=== PATIENT | male | born 1970 | race Two or more races ===

== ENCOUNTER 2018-04-02 09:39 | Observation (INO) | payer MEDICAID ==
[2018-04-02] MEDS ORDERED: ASPIRIN 81 MG TABLET, CHEWABLE PO ONE (09:42)
[2018-04-02] MEDS ORDERED: MORPHINE SULFATE 10 MG/ML INJ IV ONE (09:52)
[2018-04-02] MEDS ORDERED: ALBUTEROL SULFATE 0.083% NEB 2.5 MG/3 ML AMPUL NEB ONE (09:52)
--- NOTE | 2018-04-02 09:58 | RADIOLOGY REPORT (SQ) ---
EXAM DESCRIPTION: CHEST SINGLE VIEW COMPLETED DATE/TIME: 04/02/2018 9:50 am REASON FOR STUDY: cp COMPARISON: None. EXAM PARAMETERS: NUMBER OF VIEWS: One view. TECHNIQUE: Single frontal radiographic view of the chest acquired. RADIATION DOSE: NA LIMITATIONS: None. FINDINGS: LUNGS AND PLEURA: No opacities, masses or pneumothorax. No pleural effusion. MEDIASTINUM AND HILAR STRUCTURES: No masses. Contour normal. HEART AND VASCULAR STRUCTURES: Heart normal in size. Normal vasculature. BONES: No acute findings. HARDWARE: None in the chest. OTHER: No other significant finding. IMPRESSION: NO ACUTE RADIOGRAPHIC FINDING IN THE CHEST. TECHNICAL DOCUMENTATION: JOB ID: [id number] [employer]- All Rights Reserved Reading location - IP/workstation name: [email or web address]
[2018-04-02 10:31] LABS: ABSOLUTE EOSINOPHILS # (AUTO) 0.3 10^3/uL (0.0-0.6); ABSOLUTE LYMPHOCYTES (AUTO) 3.5 10^3/uL (0.5-4.7); ABSOLUTE MONOCYTES (AUTO) 0.8 10^3/uL (0.1-1.4); ABSOLUTE NEUT (AUTO) 7.4 10^3/uL (1.7-8.2); BASOPHILS % (AUTO) 0.3 % (0-2); EOSINOPHILS % (AUTO) 2.3 % (0-6); HEMOGLOBIN 16.1 g/dL (13.5-17.0); LYMPHOCYTES % (AUTO) 29.1 % (13-45); MEAN CORPUSCULAR HEMOGLOBIN 33.5 pg (27.0-33.4); MEAN CORPUSCULAR HGB CONC 35.7 g/dL (32.0-36.0); MEAN CORPUSCULAR VOLUME 94 fl (80-97); MONOCYTES % (AUTO) 6.7 % (3-13); PLATELET COUNT 245 10^3/uL (150-450); RED CELL DISTRIBUTION WIDTH 13.9 % (11.5-14.0); SEGMENTED NEUTROPHILS % (AUTO) 61.6 % (42-78); TOTAL CELLS COUNTED % (AUTO) 100 %
[2018-04-02 10:37] LABS: ALANINE AMINOTRANSFERASE 42 U/L (21-72); ALBUMIN 3.8 g/dL (3.5-5.0); ALKALINE PHOSPHATASE 63 U/L (38-126); ANION GAP 12 (5-19); ASPARTATE AMINO TRANSFERASE 23 U/L (17-59); BILIRUBIN,DIRECT 0.3 mg/dL (0.0-0.4); BILIRUBIN,TOTAL 0.3 mg/dL (0.2-1.3); BLOOD UREA NITROGEN 13 mg/dL (7-20); CARBON DIOXIDE 22 mmol/L (22-30); CHLORIDE 108 mmol/L (98-107); CREATINE KINASE 241 U/L (55-170); GLUCOSE 118 mg/dL (75-110); LIPASE 141.1 U/L (23-300); POTASSIUM 4.6 mmol/L (3.6-5.0); SODIUM 142.4 mmol/L (137-145); TOTAL PROTEIN 6.6 g/dL (6.3-8.2)
[2018-04-02 10:49] LABS: CREATINE KINASE MB 2.39 ng/mL (<4.55)
[2018-04-02 10:51] LABS: TROPONIN I < 0.012 ng/mL
[2018-04-02] MEDS ORDERED: GUAIFENESIN/D-METHORPHAN (200-20 MG) SYRUP 10 ML PO ONE (11:32)
[2018-04-02] MEDS ORDERED: NITROGLYCERIN 0.4 MG/TAB 25 TAB/BOTTLE SL ONE (11:35)
--- NOTE | 2018-04-02 11:38 | ER Document Report ---
ED Cardiac - General Chief Complaint: Chest Pain Stated Complaint: CHEST PAIN Time Seen by Provider: 04/02/18 09:47 Mode of Arrival: Ambulatory Information source: Patient Notes: Patient is a 47-year-old male who presents to the ER today for left-sided chest pain, worse with deep breathing and mild cough 3 days. He admits that the left -sided chest pain radiates around to the left upper back. Patient denies any fever, chills, history of asthma or COPD, shortness of breath or wheezing. Patient does smoke 1 pack per day of cigarettes, denies any history of high blood pressure, cholesterol. He does admit to family history of heart disease although he himself has never had a stroke or heart attack. He has never had a stress test. He moved here from [place] recently and does not have a doctor here. TRAVEL OUTSIDE OF THE [place] IN LAST 30 DAYS: No - Related Data Allergies/Adverse Reactions: No Known Allergies Allergy (Verified 04/02/18 09:51) Past Medical History - General Information source: Patient - Social History Smoking Status: Unknown if Ever Smoked Family History: Reviewed & Not Pertinent Patient has suicidal ideation: No Patient has homicidal ideation: No Renal/ Medical History: Denies: Hx Peritoneal Dialysis Review of Systems - Review of Systems Constitutional: No symptoms reported EENT: No symptoms reported Cardiovascular: See HPI Respiratory: See HPI Gastrointestinal: No symptoms reported Genitourinary: No symptoms reported Male Genitourinary: No symptoms reported Musculoskeletal: No symptoms reported Skin: No symptoms reported Hematologic/Lymphatic: No symptoms reported Neurological/Psychological: No symptoms reported Physical Exam - Vital signs Vitals: Pulse Ox 98 04/02/18 09:42 - Notes Notes: PHYSICAL EXAMINATION: GENERAL: Uncomfortable appearing, but in no acute distress. HEAD: Atraumatic, normocephalic. EYES: Pupils equal round and reactive to light, extraocular movements intact, sclera anicteric, conjunctiva are normal. ENT: ear canals without erythema or foreign body, TMs pearly irwin with good bony landmarks, nares patent, oropharynx clear without exudates. Moist mucous membranes. Airway patent NECK: Normal range of motion, supple without lymphadenopathy LUNGS: Ribs nontender to palpation, CTAB and equal. No wheezes rales or rhonchi. HEART: Regular rate and rhythm without murmurs ABDOMEN: Soft, no tenderness. No guarding, no rebound BACK: no vertebral tenderness, normal ROM GI/: no CVA tenderness EXTREMITIES: Normal range of motion, no pitting edema. No cyanosis. NEUROLOGICAL: Cranial nerves grossly intact. Normal sensory/motor exams. PSYCH: Normal mood, normal affect. SKIN: Warm, Dry, normal turgor, hives noted over chest and arms Course - Re-evaluation Re-evalutation: 04/02/18 13:21 I noticed a rash on patient's chest and arms and asked him about it on physical exam, he states that he is allergic to "all kinds of grass and works outside." Patient states that he used to get allergy shots for this. For this reason he was ordered Solu-Medrol which did help with his itching. Nitroglycerin is the only thing here that is helped with his chest pain. Juanis Ibrahim, nurse practitioner hospitalist agrees to admit patient at this time for chest pain rule out as he has never had a stress test. EKG reveals no acute ischemia or abnormality. - Vital Signs Vital signs: Temp Pulse Resp BP Pulse Ox 98.2 F 86 15 145/90 H 95 04/03/18 16:23 04/03/18 16:23 04/03/18 16:23 04/03/18 16:23 04/03/18 16:23 - Laboratory Result Diagrams: 04/03/18 02:50 04/03/18 02:50 Laboratory results interpreted by me: 04/02/18 04/02/18 09:21 09:21 WBC 12.0 H MCH 33.5 H Chloride 108 H Glucose 118 H Creatine Kinase 241 H Discharge - Discharge Clinical Impression: Chest pain Qualifiers: Chest pain type: unspecified Qualified Code(s): R07.9 - Chest pain, unspecified Condition: Stable Disposition: ADMITTED OBSERVATION Admitting Provider: Emmanuel ibrahim Unit Admitted: Telemetry
[2018-04-02] MEDS ORDERED: METHYLPREDNISOLONE INJ 125 MG/2 ML SDV IV ONE (12:14)
--- NOTE | 2018-04-02 12:29 | RADIOLOGY REPORT (SQ) ---
EXAM DESCRIPTION: CTA CHEST COMPLETED DATE/TIME: 04/02/2018 12:15 pm REASON FOR STUDY: left sided cp with deep breathing COMPARISON: Chest x-ray 04/02/2018 TECHNIQUE: CT scan of the chest performed using helical scanning technique with dynamic intravenous contrast injection. Images reviewed with lung, soft tissue and bone windows. Reconstructed coronal and sagittal MPR images reviewed. Additional 3 dimensional post-processing performed to develop Maximal Intensity Projection images (ME P). All images stored on PACS. All CT scanners at this facility use dose modulation, iterative reconstruction, and/or weight based d osing when appropriate to reduce radiation dose to as low as reasonably achievable (ALARA). [facility]: Dose Right [facility]: CareDose [facility]: Dose Right [facility]: Teradose 4D [facility]: EquityZen CONTRAST TYPE AND DOSE: contrast/concentration: Isovue 370.00 mg/ml; Total Contrast Delivered: 135.0 ml; Total Saline Delivered: 147.0 ml Contrast bolus optimized for the pulmonary arteries. Not diagnostic for the aorta. RENAL FUNCTION: BUN 13 creatinine 0.74 RADIATION DOSE: CT Rad equipment meets quality standard of care and radiation dose reduction techniq ues were employed. CTDIvol: 9.9 - 21.4 mGy. DLP: 1624 mGy-cm. . LIMITATIONS: None. FINDINGS: LUNGS AND PLEURA: No masses, infiltrates, pneumothorax. No pleural effusions, calcificati ons. AORTA AND GREAT VESSELS: No aneurysm. Contrast bolus not optimized for the aorta. HEART: No pericardial effusion. No significant coronary artery calcifications. PULMONARY ARTERIES: No emboli visualized in the main pulmonary arteries or the segmental branches. HILAR AND MEDIASTINAL STRUCTURES: No identified masses or abnormal nodes. HARDWARE: None in the chest. UPPER ABDOMEN: No significant findings. Limited exam. THYROID AND OTHER SOFT TISSUES: No masses. No adenopathy. BONES: No acute or significant finding. 3D MIPS: Confirm above findings. OTHER: No other significant finding. IMPRESSION: NORMAL CTA OF THE CHEST. NO PULMONARY EMBOLI. COMMENT: Quality ID # [id number]: Final reports with documentation of one or more dose reduction techniques (e.g., Automated exposure control, adjustment of the mA and/or kV according to patient size, use of iterative reconstruction technique) TECHNICAL DOCUMENTATION: JOB ID: [id number] [employer]- All Rights Reserved Reading location - IP/workstation name: [email or web address]
[2018-04-02] MEDS ORDERED: IBUPROFEN 800 MG TABLET PO PRN (14:47)
[2018-04-02] MEDS ORDERED: KETOROLAC TROMETHAMINE INJ/PF 30 MG/1 ML SDV IV ONE (15:00)
--- NOTE | 2018-04-02 15:44 | PDOC H&P ---
<JUANIS FRIEND - Last Filed: 04/02/18 15:40> History of Present Illness Admission Date/PCP: 04/02/18 13:37 Patient complains of: Chest pain. Back pain. History of Present Illness: DALLAS OTERO is a 47 year old male who presented to the emergency department with a 3 day history of left upper back pain radiating to the left anterior chest and left shoulder. The patient states that his pain originated in his left upper back and has progressively been getting worse over the last 3 days, slowly radiating around to his left shoulder and chest. The patient describes the pain as a pressure that is exacerbated with deep inhalation. The patient describes the pain as constant, so much so that it keeps him awake at night. The patient denies taking any home medication to help alleviate his pain. The patient denies any PMH other than seasonal allergies. 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 Endorses [id number] smoking history. Upon arrival to the emergency department, the patient received 5 mg IV morphine for his chest pain, which he states did not alleviate the pain. Additionally, the patient received 325 mg of aspirin and sublingual nitroglycerin, after which he endorsed chest pain relief. EKG demonstrates NSR, no evidence of acute ischemia or infarction. Initial troponin <0.012. All other lab work benign. CXR normal. CTA chest/abdomen done for chest pain with inhalation, negative for PE or other cardiopulmonary pathology. Upon assessment, the patient is resting comfortably in bed on room air. He endorses left chest/ upper back pain with inhalation, additionally he endorses left shoulder "soreness." Lung sounds are clear to auscultation. His left anterior chest and left scapular area are tender to palpation. Additionally, the patient has a macular rash covering his anterior chest, upper back, and bilateral upper extremities. Plan for admission to hospitalist service with cardiology consulting. Past Medical History Past Medical History: Seasonal allergies Medical History: None - Patient states he has not seen a doctor "in a long time. 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 Past Surgical History Past Surgical History: Reports: Appendectomy Social History Information Source: Patient Lives with: Family Smoking Status: Current Every Day Smoker Cigarettes Packs Per Day: 0.5 Number of Years Smokin Frequency of Alcohol Use: Heavy - At least one beer per day Hx Recreational Drug Use: Yes Drugs: None Hx Prescription Drug Abuse: No - Advance Directive Resuscitation Status: Do Not Resuscitate Family History Family History: CAD, DM, Malignancy Parental Family History Reviewed: Yes Children Family History Reviewed: Yes Sibling(s) Family History Reviewed.: Yes Medication/Allergy Home Medications: Aspirin [Ecotrin 81 mg EC Tablet] 81 mg PO DAILY #90 tabec 04/03/18 Atorvastatin Calcium [Lipitor 10 mg Tablet] 10 mg PO QHS #30 tablet 04/03/18 Cyclobenzaprine HCl [Flexeril 10 mg Tablet] 5 mg PO Q8HP PRN #14 tablet Hydrocortisone [Hydrocortisone 1% Cream 28.35 gm] 1 applic TP QPM #1 tube Allergies/Adverse Reactions: No Known Allergies Allergy (Verified 04/02/18 09:51) Review of Systems All systems: reviewed and no additional remarkable complaints except as stated Physical Exam Vital Signs: Temp Pulse Resp BP Pulse Ox 98.1 F 79 14 148/92 H 97 04/02/18 09:47 04/02/18 09:47 04/02/18 14:00 04/02/18 13:11 04/02/18 14:00 General appearance: PRESENT: no acute distress Eye exam: PRESENT: conjunctiva pink, PERRLA Mouth exam: PRESENT: moist Neck exam: PRESENT: full ROM Respiratory exam: PRESENT: chest wall tenderness, clear to auscultation tom, symmetrical, unlabored Cardiovascular exam: PRESENT: +S1, +S2 Pulses: PRESENT: normal radial pulses, normal dorsalis pedis pul Vascular exam: PRESENT: normal capillary refill GI/Abdominal exam: PRESENT: normal bowel sounds, soft. ABSENT: tenderness Rectal exam: PRESENT: deferred Extremities exam: PRESENT: full ROM Musculoskeletal exam: PRESENT: ambulatory, full ROM Neurological exam: PRESENT: alert, awake, oriented to person, oriented to place , oriented to time, oriented to situation Psychiatric exam: PRESENT: appropriate affect Skin exam: PRESENT: rash - Anterior chest, upper back, bilateral upper extremities Results Impressions: Chest X-Ray 04/02/18 09:42 IMPRESSION: NO ACUTE RADIOGRAPHIC FINDING IN THE CHEST. Chest/Abdomen CTA 04/02/18 11:36 IMPRESSION: NORMAL CTA OF THE CHEST. NO PULMONARY EMBOLI. Status: Imported from PACS Assessment & Plan - Diagnosis (1) Chest pain QualifierTitle: Chest pain type: chest pain on breathing Qualified Code(s ): R07.1 - Chest pain on breathing Is this a current diagnosis for this admission?: Yes Plan: Patient endorses 3 day history of left upper back pain radiating around to left chest and left shoulder. Patient states that the pain originated in his back and eventually spread to his chest and shoulder. Chest pain was relieved after administration of sublingual nitroglycerin. EKG shows normal sinus rhythm, no evidence of acute infarction or ischemia. Will repeat in a.m. Initial troponin < 0.012, will continue to trend every 6 hours 3 CTA chest negative Daily aspirin therapy. Daily statin therapy PRN IV morphine for significant pain Cardiology consulted, appreciate their recommendations. Cardiolite stress test ordered (2) Musculoskeletal back pain Is this a current diagnosis for this admission?: Yes Plan: Endorses 3 day history of left upper back pain radiating to left chest. Pain is exacerbated with inhalation and the affected area is tender to palpation. Administered Morphine 5mg IV x 1 in ED, patient states this did not resolve his pain. Administered ketorolac 30 mg IV 1 in the emergency department Initiate PRN Motrin for pain Initiate daily lidocaine patch to affected area Initiate PRN Flexeril for muscle pain (3) Rash Is this a current diagnosis for this admission?: Yes Plan: Patient has rash on his back, chest, upper extremities. He states he experiences this rash every year at this time, he was previously going to an web analytics specialist in [place]. Administered Solu-Medrol 125 mg IV in emergency department Initiate PO loratidine and hydrocortisone cream (4) Tobacco abuse Is this a current diagnosis for this admission?: Yes Plan: Patient endorses [id number] smoking history. Nicotine patch offered (5) DNR (do not resuscitate) Is this a current diagnosis for this admission?: Yes Plan: The patient states he does not wish to be resuscitated. No CPR. No intubation. When asked for clarification, the patient stated, "if my heart stops I do not want CPR, if I stop breathing let me ." - Time Time Spent: 30 to 50 Minutes Medications reviewed and adjusted accordingly: Yes Anticipated discharge: Home Within: within 48 hours - Inpatient Certification Based on my medical assessment, after consideration of the patient's comorbidities, presenting symptoms, or acuity I expect that the services needed warrant INPATIENT care.: Yes I certify that my determination is in accordance with my understanding of Medicare's requirements for reasonable and necessary INPATIENT services [42 CFR 412.3e].: Yes Medical Necessity: Risk of Complication if Not Cared For in Hospital - Plan Summary Plan Summary: Admit for chest pain observation. Plan for stress test tomorrow morning. <NELIDAFebruary - Last Filed: 04/04/18 15:48> History of Present Illness Admission Date/PCP: 04/02/18 13:37 History of Present Illness: DALLAS OTERO is a 47 year old male Physical Exam Vital Signs: Temp Pulse Resp BP Pulse Ox 98.2 F 86 15 145/90 H 95 04/03/18 16:23 04/03/18 16:23 04/03/18 16:23 04/03/18 16:23 04/03/18 16:23 Intake & Output 04/03/18 04/04/18 04/05/18 06:59 06:59 06:59 Intake Total 1800 Output Total 1600 Balance 200 Weight 92.5 kg Results Laboratory Results: 04/03/18 02:50 04/03/18 02:50 04/02/18 04/02/18 04/03/18 15:23 20:48 02:50 Troponin I < 0.012 < 0.012 < 0.012 Impressions: Chest X-Ray 04/02/18 09:42 IMPRESSION: NO ACUTE RADIOGRAPHIC FINDING IN THE CHEST. Chest/Abdomen CTA 04/02/18 11:36 IMPRESSION: NORMAL CTA OF THE CHEST. NO PULMONARY EMBOLI. Assessment & Plan - Plan Summary Plan Summary: Co signing note for Juanis Howard NP
[2018-04-02] MEDS ORDERED: LIDOCAINE 5% (700 MG) TRANSDERMAL ADH..PATCH TP ONE ×2 (16:30→18:00)
[2018-04-02] MEDS: NITROGLYCERIN 0.4 MG/TAB 25 TAB/BOTTLE SL PRN ×3 (17:02→21:59)
[2018-04-02] MEDS ORDERED: HYDROCORTISONE 1% CREAM 28.35 GM TP SCH (18:00)
[2018-04-02] MEDS: LANSOPRAZOLE 30 MG TAB.RAP.DR PO SCH (18:49)
--- NOTE | 2018-04-02 20:00 | EKG REPORT ---
SEVERITY:- NORMAL ECG - SINUS RHYTHM : Confirmed by: Ashlie Lundberg MD 02-Apr-2018 19:59:26
--- NOTE | 2018-04-02 20:18 | PDOC CONSULTATION ---
Consultation Consult Date: 04/02/18 Attending physician:: JOE KRAUSE Consult reason:: Chest pain History of Present Illness Admission Date/PCP: 04/02/18 13:37 Patient complains of: Chest pain History of Present Illness: DALLAS OTERO is a 47 year old male who presented to the emergency department with a 3 day history of left upper back pain radiating to the left anterior chest and left shoulder. The patient states that his pain originated in his left upper back and has progressively been getting worse over the last 3 days, slowly radiating around to his left shoulder and chest. The patient describes the pain as a pressure that is exacerbated with deep inhalation. The patient describes the pain as constant, so much so that it keeps him awake at night. The patient denies taking any home medication to help alleviate his pain. The patient denies any PMH other than seasonal allergies. 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 Endorses [id number] smoking history. Upon arrival to the emergency department, the patient received 5 mg IV morphine for his chest pain, which he states did not alleviate the pain. Additionally, the patient received 325 mg of aspirin and sublingual nitroglycerin, after which he endorsed chest pain relief. EKG demonstrates NSR, no evidence of acute ischemia or infarction. Initial troponin <0.012. All other lab work benign. CXR normal. CTA chest/abdomen done for chest pain with inhalation, negative for PE or other cardiopulmonary pathology. Upon assessment, the patient is resting comfortably in bed on room air. He endorses left chest/ upper back pain with inhalation, additionally he endorses left shoulder "soreness." Lung sounds are clear to auscultation. His left anterior chest and left scapular area are tender to palpation. Additionally, the patient has a macular rash covering his anterior chest, upper back, and bilateral upper extremities. Plan for admission to hospitalist service with cardiology consulting. This history obtained by the hospitalist was reviewed and confirmed. Patient denied any prior history of myocardial infarction, angina, CHF. He has strong family history of diabetes. He has not been to a physician in many years. Patient's at bedside. Patient does have history of loud snoring and witnessed apnea. Past Surgical History Past Surgical History: Reports: Appendectomy Social History Information Source: Patient Lives with: Family Smoking Status: Current Every Day Smoker Cigarettes Packs Per Day: 0.5 Number of Years Smokin Frequency of Alcohol Use: Heavy - At least one beer per day Hx Recreational Drug Use: Yes Drugs: None Hx Prescription Drug Abuse: No - Advance Directive Resuscitation Status: Do Not Resuscitate Surrogate healthcare decision maker:: Patient's is the surrogate decision-maker Family History Family History: CAD, DM, Malignancy Parental Family History Reviewed: Yes Children Family History Reviewed: Yes Sibling(s) Family History Reviewed.: Yes Medication/Allergy Home Medications: No Home Medications 04/02/18 Allergies/Adverse Reactions: No Known Allergies Allergy (Verified 04/02/18 09:51) Review of Systems Review of Systems: Please see history of present illness and past medical history as wall. Constitutional: No fever or chills reported. Head : No recent chronic headaches, recent head injury. Eyes: No recent eye pain, diplopia, redness, discharge, acute visual changes. Ears: No recent chronic ear pain, acute hearing loss, ear discharge. Oral cavity: No recent ulcerations, bleeding, oral cavity discomfort. Neck: No recent acute neck pain reported. Hematologic: No recent easy bruising or bleeding. Lymphatic: No recent lymph node enlargement reported. Cardiovascular system review: See history of present illness. Respiratory system review: No hemoptysis or blood clots in the lungs reported. Mild Shortness of breath on exertion Gastrointestinal system review: Negative for any recent acute hematemesis, melena. Genitourinary system review: No recent acute or chronic hematuria, flank pain, UTI etc. reported. Skin system review: Negative for any recent abnormal bruising, no rash, no pruritus reported. Neurologic: No prior history of strokes, mini strokes, seizure disorder. Psychologic: No history of major psychosis or major depression reported. Musculoskeletal: Minor aches and pains reported. No acute joint swelling reported. Endocrine: No recent polyuria, polydipsia, recent heat or cold intolerance. Physical Exam Vital Signs: Temp Pulse Resp BP Pulse Ox 99.4 F 85 20 145/90 H 97 04/02/18 16:25 04/02/18 18:00 04/02/18 16:25 04/02/18 16:25 04/02/18 16:25 Intake & Output 04/01/18 04/02/18 04/03/18 06:59 06:59 06:59 Weight 92.5 kg Exam: GENERAL: well-nourished and in no acute distress. Alert and oriented x3 HEAD: Atraumatic, normocephalic. EYES: Pupils equal round and reactive to light, extraocular movements intact, sclera anicteric, conjunctiva are normal. ENT: TMs normal, nares patent, oropharynx clear without exudates. Moist mucous membranes. No oral ulcerations or bleeding gums noted NECK: supple without lymphadenopathy. Trachea is central. No cervical or axillary lymphadenopathy noted. Carotids are 2+, JVD WNL LUNGS: Respiration seems nonlabored, no significant accessory muscle action noted. Breath sounds clear to auscultation bilaterally and equal noted. No wheezes rales or rhonchi noted. No significant dullness noted on percussion. CHEST: Palpation of the chest wall shows mild diffuse chest wall tenderness. HEART: [place] CRNP, No PSH, 1/6 ROGER aortic area, 1/6 kaminski systolic murmur mitral area, no rubs, no gallops. ABDOMEN: Soft, no significant tenderness appreciated, normoactive bowel sounds. No guarding, no rebound. No rigidity noted . No masses appreciated. EXTREMITIES: Pedal pulses are 1-2+, no calf tenderness noted. No clubbing or cyanosis. negative pedal edema noted NEUROLOGICAL: Focused neurological exam showed no significant neurologic deficit. Normal speech, no focal weakness appreciated. PSYCH: Normal mood, normal affect. Judgment and insight within normal limits. SKIN: No significant ecchymosis, skin is noted to be warm. MUSCULOSKELETAL EXAM: No significant acute joint swelling noted. Results Laboratory Results: 04/02/18 15:23 Troponin I < 0.012 EKG Comments: Twelve-lead EKG shows sinus rhythm. No acute ST-T wave changes are noted. Impressions: Chest X-Ray 04/02/18 09:42 IMPRESSION: NO ACUTE RADIOGRAPHIC FINDING IN THE CHEST. Chest/Abdomen CTA 04/02/18 11:36 IMPRESSION: NORMAL CTA OF THE CHEST. NO PULMONARY EMBOLI. Assessment & Plan - Diagnosis (1) Chest pain Qualifiers: Chest pain type: unspecified Qualified Code(s): R07.9 - Chest pain, unspecified Is this a current diagnosis for this admission?: Yes (2) Obesity Qualifiers: Obesity type: unspecified obesity type Obesity classification: unspecified obesity classification Is this a current diagnosis for this admission?: Yes (3) Sleep disorder breathing Is this a current diagnosis for this admission?: Yes (4) Musculoskeletal back pain Is this a current diagnosis for this admission?: Yes (5) Tobacco abuse Is this a current diagnosis for this admission?: Yes - Notes Notes: 2D echo and nuclear stress test scheduled. Chest pain: Patient has some typical and atypical features of chest pain. Cardiac enzymes so far has been negative. Electrocardiogram did not show any definitive ST segment changes. Multiple differential diagnoses exist in this patient. In descending order of probability this includes underlying coronary artery disease, gastroesophageal reflux, musculoskeletal pain, referred pain from elsewhere, anxiety panic disorder etc.Patient has significant cardiac risk factors, which indicates that there is a intermediate probability of chest discomfort coming from underlying CAD. Feel that it would need to be evaluated further. Discussed evaluation to assess this. In this regard risk benefits of nuclear stress test and other alternative processes were discussed in detail. The patient prefers to undergo nuclear stress test. The small risk of radiation , myocardial infarction, , cardiac arrhythmias, respiratory distress etc. were discussed. Patient understood the risks and gave informed consent. Nuclear stress test was therefore scheduled. For risk evaluation, patient is also being scheduled for a 2-D echocardiogram. Patient questions were answered. Obesity: Patient has been advised in weight loss. Sleep disordered breathing: Patient has high probability of having underlying sleep apnea syndrome. Patient will benefit from a sleep study. This can be scheduled as an outpatient. Musculoskeletal back pain: Patient advised to lose weight. Tobacco abuse: Patient advised in tobacco cessation.. - Time Time Spent: 30 to 50 Minutes - More than 50% of the time spent coordinating care , discussing management plans with involved caregivers. Management plans discussed with involved personnels. Medical decision making was of moderate to high complexity, patient's has multiple comorbidities. Medications reviewed and adjusted accordingly: Yes
[2018-04-02] MEDS: ENOXAPARIN SODIUM INJ 30 MG/0.3 ML DISP.SYRIN SUBCUT SCH (21:47)
[2018-04-02] MEDS ORDERED: ATORVASTATIN CALCIUM 10 MG TABLET PO SCH (22:00)
[2018-04-02] MEDS: MORPHINE SULFATE 10 MG/ML INJ IV PRN (23:56)
[2018-04-03 03:05] LABS: HEMATOCRIT 42.6 % (37.9-51.0); HEMOGLOBIN 14.7 g/dL (13.5-17.0); MEAN CORPUSCULAR HEMOGLOBIN 32.6 pg (27.0-33.4); MEAN CORPUSCULAR HGB CONC 34.6 g/dL (32.0-36.0); MEAN CORPUSCULAR VOLUME 94 fl (80-97); PLATELET COUNT 243 10^3/uL (150-450); RED BLOOD COUNT 4.52 10^6/uL (4.35-5.55); WHITE BLOOD COUNT 15.9 10^3/uL (4.0-10.5)
[2018-04-03 03:14] LABS: ANION GAP 13 (5-19); BLOOD UREA NITROGEN 22 mg/dL (7-20); CALCIUM 9.7 mg/dL (8.4-10.2); CARBON DIOXIDE 18 mmol/L (22-30); CHLORIDE 108 mmol/L (98-107); PHOSPHORUS 3.7 mg/dL (2.5-4.5); POTASSIUM 4.4 mmol/L (3.6-5.0)
[2018-04-03 03:15] LABS: GLUCOSE 245 mg/dL (75-110)
[2018-04-03] MEDS: LANSOPRAZOLE 30 MG TAB.RAP.DR PO SCH (04:43)
[2018-04-03] MEDS: MORPHINE SULFATE 10 MG/ML INJ IV PRN (05:27)
--- NOTE | 2018-04-03 09:56 | EKG REPORT ---
SEVERITY:- OTHERWISE NORMAL ECG - SINUS TACHYCARDIA : Confirmed by: Ashlie Lundberg MD 03-Apr-2018 09:55:40
[2018-04-03] MEDS ORDERED: LORATADINE 10 MG TABLET PO SCH (10:00)
[2018-04-03] MEDS ORDERED: ASPIRIN 81 MG TABLET, ENT COATED PO SCH (10:00)
[2018-04-03] MEDS ORDERED: LIDOCAINE 5% (700 MG) TRANSDERMAL ADH..PATCH TP SCH (10:00)
[2018-04-03] MEDS: ENOXAPARIN SODIUM INJ 30 MG/0.3 ML DISP.SYRIN SUBCUT SCH (10:31)
[2018-04-03] MEDS ORDERED: REGADENOSON INJ 0.4 MG/5 ML DISP.SYRIN IV ONE (11:25)
[2018-04-03] MEDS ORDERED: CYCLOBENZAPRINE HCL 10 MG TABLET PO PRN (12:32)
--- NOTE | 2018-04-03 12:57 | XCELERA REPORT ---
[address] [address] Transthoracic Echocardiogram Report Name: DALLAS OTERO Age: 47 yrs Gender: Male : 1970 Patient Status: Inpatient Patient Location: [address] [place] [address] Study Date: 04/03/2018 10:24 AM Procedure: A complete two-dimensional transthoracic echocardiogram was performed (2D, M-mode, spectral and color flow Doppler). The study was technically difficult with many images being suboptimal in quality. Reason For Study: Chest pain Ordering Physician: ELIANA PRESSLEY Performed By: Linda Hdez Interpretation Summary The left ventricular ejection fraction is normal. There is mild to moderate concentric left ventricular hypertrophy. Doppler measurements suggest impaired left ventricular relaxation, which is associated with grade I/IV or mild diastolic dysfunction The left ventricle is grossly normal size. Wall motion cannot be accurately commented on, but no definite regional wall motion abnormalities noted. The right ventricular systolic function is normal. The right ventricle is borderline dilated. The right atrium is normal in size The left atrium is borderline dilated. There is a trace amount of mitral regurgitation There is no mitral valve stenosis. There is no aortic valve stenosis No aortic regurgitation is present. The aortic root is not well visualized. The inferior vena cava was not well visualized There is no pericardial effusion. MMode/2D Measurements & Calculations RVDd: 3.0 cm LVIDd: 5.4 cmFS: 39.5 % Ao root diam: 3.2 cm IVSd: 1.3 cm LVIDs: 3.2 cmEDV(Teich): 138.5 ml Ao root area: 8.0 cm2 LVPWd: 1.4 cmESV(Teich): 42.1 ml EF(Teich): 69.6 % LVOT diam: 1.9 cm LVOT area: 2.7 cm2 Doppler Measurements & Calculations MV E max sofy: MV dec slope: Ao V2 max: LV V1 max P.0 cm/sec 156.6 cm/sec 6.7 mmHg MV A max sofy: 492.1 cm/sec2 Ao max PG: LV V1 max: 104.9 cm/sec MV dec time: 9.8 mmHg 129.4 cm/sec MV E/A: 0.75 0.16 sec ANTONIO(V,D): 2.2 cm2 PA V2 max: 121.0 cm/sec PA max P.9 mmHg Left Ventricle The left ventricle is grossly normal size. There is mild to moderate concentric left ventricular hypertrophy. The left ventricular ejection fraction is normal. Doppler measurements suggest impaired left ventricular relaxation, which is associated with grade I/IV or mild diastolic dysfunction. Wall motion cannot be accurately commented on, but no definite regional wall motion abnormalities noted. Right Ventricle The right ventricle is borderline dilated. There is normal right ventricular wall thickness. The right ventricular systolic function is normal. Atria The right atrium is normal in size. The left atrium is borderline dilated. Interarterial septum not well visualized and not well dopplered. Cannot comment on ASD/PFO presence. Mitral Valve The mitral valve is grossly normal. There is no mitral valve stenosis. There is a trace amount of mitral regurgitation. Aortic Valve The aortic valve is not well visualized secondary to technical limitations. There is no aortic valve stenosis. No aortic regurgitation is present. Tricuspid Valve The tricuspid valve is not well visualized secondary to technical limitations. There is no tricuspid stenosis. No tricuspid regurgitation. Pulmonic Valve The pulmonic valve is not well visualized. Great Vessels The aortic root is not well visualized. The inferior vena cava was not well visualized. Effusions There is no pericardial effusion. : ELIANA PRESSLEY > Eliana Pressley
--- NOTE | 2018-04-03 13:01 | DRAGON STRESS TEST REPORT ---
INTRAVENOUS LEXISCAN CARDIOLITE STRESS TEST USING SINGLE PHOTON EMMISION COMPUTERIZED TOMOGRAPHIC. DATE OF PROCEDURE: April 04, 2018, INDICATION : Chest pain CARDIAC RISK FACTORS: Dyslipidemia, tobacco abuse, family history of CAD RESTING EKG: Sinus rhythm, no baseline ST-T wave changes noted. STRESS EKG: No significant ST segment changes noted with LexiScan bolus REASON FOR TERMINATION: Protocol. PROCEDURE REPORT: Baseline heart rate 90 beats per minute with blood pressure of 147/72. Patient had no significant complaints. Patient was bolused with Lexiscan 0.4 mg intravenously followed by saline bolus. Heart rate at 2 minutes post bolus 122 with a blood pressure of 136/76. 3 minutes post bolus heart rate 117 with blood pressure of 149/67. No significant EKG changes were noted. Patient had no significant complaints during the procedure or postprocedure. Patient injected with Aminophyllin 75 mg at 3 minutes or later after Lexiscan bolus. CONCLUSIONS: Normal EKG and hemodynamic response to IV LexiScan. NUCLEAR DATA: At rest the patient was given 12.48 millicuries of technetium 99 sestamibi injected intravenously. As per protocol rest gated SPECT images were obtained. On day of stress test, the patient was given intravenous LexiScan at a dose of 0.4 mg in 5 mL intravenously, followed by flush with normal saline. Subsequently the stress dose of 40.9 millicuries of technetium 99 sestamibi was injected intravenously. As per protocol stress gated images were obtained. NUCLEAR INTERPRETATION: Both raw and processed data were used for interpretation. Visual, qualitative, computer-generated quantitative data was used. There was good myocardial uptake of technetium compound. Motion artifact and soft tissue attenuations were noted. Increased visceral uptake was noted. No definitive areas of transient perfusion defect noted, No definitive areas of fixed perfusion defect or scars noted. EKG gated imaging showed LV EF at 62 %, rest and stress gated EF similar visually. T. I D. ratio was 1.43. Lung heart ratio noted to be within normal limits 0.31. No significant extracardiac and abnormal radiotracer activities were noted. RV free wall uptake was noted to be WNL. LVH noted. IMPRESSION: Also refer to comments under nuclear interpretation. Also test results needs to be interpreted in the context of pretest probability. 1. No definitive areas of transient perfusion defect noted. 2. There is no definitive scintigraphic evidence of myocardial infarction/scar. 3. EKG gated imaging shows left ventricular ejection fraction of approx. 62 %. 4. Transient ischemic dilatation noted, possibly related to LVH. According to most recent literature review, Journal of nuclear medicine, January 2014, shows that transient ischemic dilatation in the absence of significant perfusion abnormalities may not necessarily indicate increased cardiovascular event rate. clinical correlation requested as occasionally single vessel disease or balanced ischemia could be missed. In approximately 10% of the cases Lexiscan may not cause adequate vasodilatory stress. RECOMMENDATIONS: Aggressive risk factor modification and medical management. Further evaluation may be needed if continued symptoms or other high risk indicators are noted on clinical evaluation. Close cardiology follow-up is also recommended. Clinical correlation with echocardiogram derived ejection fraction. Inability to exercise by itself can lead to increased cardiovascular event risks. Consider cardiology consultation and or follow-up if clinically indicated. I am available for cardiology evaluation and consultation if requested by the video systems engineer, unless patient already has a configuration consultant. NEEL
--- NOTE | 2018-04-03 13:38 | PDOC PROGRESS REPORT ---
Subjective Progress Note for:: 04/03/18 Subjective:: Patient seems to be doing better with gradual improvement. Pt is denying any chest arm or neck discomfort. Patient denying any PND, orthopnea. Patient denied any sustained palpitations, dizziness, syncope, near syncope. Patient denying any fever chills. Patient denying any other significant discomfort. Patient blood sugars has been noted high. Glycohemoglobin which was ordered yesterday was canceled by the lab. Patient is maintaining sinus rhythm. Review of systems: Rest review of systems negative. Medications: Medications have been reviewed. Reason For Visit: CHEST PAIN Physical Exam Vital Signs: Temp Pulse Resp BP Pulse Ox 98.2 F 86 15 145/84 H 95 04/03/18 03:35 04/03/18 07:00 04/03/18 03:35 04/03/18 03:35 04/03/18 03:35 Intake & Output 04/02/18 04/03/18 04/04/18 06:59 06:59 06:59 Intake Total 1800 Output Total 1600 Balance 200 Weight 92.5 kg Exam: GENERAL: well-nourished and in no acute distress. Alert and oriented x3 HEAD: Atraumatic, normocephalic. EYES: Pupils equal round and reactive to light, extraocular movements intact, sclera anicteric, conjunctiva are normal. ENT: TMs normal, nares patent, oropharynx clear without exudates. Moist mucous membranes. No oral ulcerations or bleeding gums noted NECK: supple without lymphadenopathy. Trachea is central. No cervical or axillary lymphadenopathy noted. Carotids are 2+, JVD WNL LUNGS: Respiration seems nonlabored, no significant accessory muscle action noted. Breath sounds clear to auscultation bilaterally and equal noted. No wheezes rales or rhonchi noted. No significant dullness noted on percussion. CHEST: Palpation of the chest wall shows no significant chest wall tenderness. 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 ABDOMEN: Soft, no significant tenderness appreciated, normoactive bowel sounds. No guarding, no rebound. No rigidity noted . No masses appreciated. EXTREMITIES: Pedal pulses are 1-2+, no calf tenderness noted. No clubbing or cyanosis. negative pedal edema noted NEUROLOGICAL: Focused neurological exam showed no significant neurologic deficit. Normal speech, no focal weakness appreciated. PSYCH: Normal mood, normal affect. Judgment and insight within normal limits. SKIN: No significant ecchymosis, skin is noted to be warm. Erythematous rash noted all over the chest which patient claims is chronic. MUSCULOSKELETAL EXAM: No significant acute joint swelling noted. Results Laboratory Results: 04/03/18 02:50 04/03/18 02:50 04/03/18 04/03/18 02:50 02:50 WBC 15.9 H RBC 4.52 Hgb 14.7 Hct 42.6 MCV 94 MCH 32.6 MCHC 34.6 RDW 14.0 Plt Count 243 Sodium 139.0 Potassium 4.4 Chloride 108 H Carbon Dioxide 18 L Anion Gap 13 BUN 22 H Creatinine 0.76 Est GFR ( Amer) > 60 Est GFR (Non-Af Amer) > 60 Glucose 245 H Calcium 9.7 Phosphorus 3.7 04/02/18 04/02/18 04/03/18 15:23 20:48 02:50 Troponin I < 0.012 < 0.012 < 0.012 EKG Comments: Shows sinus rhythm without any sustained tachycardia or bradycardia. Impressions: Chest X-Ray 04/02/18 09:42 IMPRESSION: NO ACUTE RADIOGRAPHIC FINDING IN THE CHEST. Chest/Abdomen CTA 04/02/18 11:36 IMPRESSION: NORMAL CTA OF THE CHEST. NO PULMONARY EMBOLI. Assessment & Plan - Diagnosis (1) Chest pain Qualifiers: Chest pain type: unspecified Qualified Code(s): R07.9 - Chest pain, unspecified Is this a current diagnosis for this admission?: Yes (2) Obesity Qualifiers: Obesity type: unspecified obesity type Obesity classification: unspecified obesity classification Is this a current diagnosis for this admission?: Yes (3) Sleep disorder breathing Is this a current diagnosis for this admission?: Yes (4) Musculoskeletal back pain Is this a current diagnosis for this admission?: Yes (5) Tobacco abuse Is this a current diagnosis for this admission?: Yes (6) Diabetes Qualifiers: Diabetes mellitus type: type 2 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 This was evaluated with a nuclear stress test. Nuclear stress test was negative for any significant areas of ischemia or any significant areas of scar. The nuclear stress test is felt to be relatively low risk. Patient informed that occasionally single- vessel disease and balanced ischemia could be missed. Patient advised aggressive risk factor modification and medical therapy. Patient informed that further evaluation may become necessary if symptoms worsens or there is a development of new symptoms indicative of angina or angina equivalent symptom. Diabetes: This is being inferred in view of elevated blood sugar. Patient will benefit from weight loss, regular exercise program, treatment of sleep apnea if present. Metformin therapy could be instituted. Obesity: Patient encouraged in weight loss. Sleep disordered breathing: Patient advised in weight loss. Will be happy to schedule patient for a sleep study as an outpatient if patient wishes. Musculoskeletal back pain: Resolved. Tobacco abuse: Patient advised to quit smoking. Will be happy to help in this regard if patient wishes. - Time Time with patient: Greater than 35 minutes - Patient was seen multiple times. Total time exceeds 40 minutes. In the morning nuclear stress test procedure, risks benefits, alternatives were discussed. Patient seen during the stress test. Patient also seen after stress test when results were discussed with the patient in detail. Patient's questions were answered. Nuclear stress test results were discussed with the patient. Patient was informed that no definitive evidence of pharmacologic stress-induced ischemia noted. No definite fixed defects were noted. Patient informed that occasionally significant single vessel disease or balanced ischemia could be missed. However based on the current study results, would recommend aggressive risk factor modification and medical therapy. It may also be worthwhile to consider evaluation or empiric management of other causes of chest pain. Should no other cause be found and if persistent in having chest pain, then cardiac catheterization should be considered. Right now, recommendations are for aggressive risk factor modification and medical management. 2D echo results discussed. Echo was technically difficult but LVEF is within normal limit mild to moderate LVH is noted. No significant valvular abnormalities noted. Medications reviewed and adjusted accordingly: Yes
[2018-04-03 13:50] LABS: CHOLESTEROL 176.69 mg/dL (0-200); TRIGLYCERIDES 234 mg/dL (<150)
[2018-04-03 14:01] LABS: DIRECT LDL 122 mg/dL (<100); VLDL CHOLESTEROL 46.8 mg/dL (10-31)
[2018-04-03 16:25] VITALS: BP 145/90
--- NOTE | 2018-04-03 20:17 | PDOC DISCHARGE SUMMARY ---
<RADU QUICK - Last Filed: 04/03/18 19:51> General - Admit/Disc Date/PCP Admission Date/Primary Care Provider: 04/02/18 13:37 Discharge Date: 04/03/18 - Discharge Diagnosis (1) Chest pain Is this a current diagnosis for this admission?: Yes Summary: The patient was admitted for observation and chest pain work up secondary to constant left chest wall pain that was exacerbated by deep breathing and movement of left arm and associated with back pain. CTA of the chest was nrmal and negative for PE. EKG demonstrated NSR without evidence of ischemia or infarction. The patient maintained a normal sinus rhythm throughout his admission. Serial troponins were negative x 4. Echocardiogram revealed a preserved ejection fraction with mild LVH and mild diastolic disfunction. Nuclear stress test was normal. HbA1c is 5.6%; increased fasting glucose most likely r/t IV Solu-Medrol provided in the ED previously. Lipid panel borderline: LDL 122, HDL 37, Trig 234, TChol 176. Of note, this was not a fasting lipid panel. The patient's current chest pain is most likely musculoskeletal in nature as it is reproducible with deep inspiration, movement of his left arm, and with palpation. The patient recently began a physically intensive job which likely has led to muscle overuse leading to discomfort. The patient was counselled that despite his reassuring testing, risk for CAD/CA remained and that all chest pain should be evaluated carefully by a medical provider. He was encouraged to return to the emergency department for any acute chest pain that did not resolve following a few minutes of rest. He was encouraged to begin a low sodium/low fat diet and to achieve weight loss to improve his overall cardiovascular health and improve lipid levels. He was provided a prescription for atorvastatin. He was advised on the importance of alcohol and tobacco cessation. He was also encouraged to take a daily aspirin. He is advised to follow up with his primary care provider within 1 week. (2) ETOH abuse Is this a current diagnosis for this admission?: Yes Summary: The patient's family members report heavy, daily, EtOH use (minimum 8 beers daily). He did not experience withdrawal while inpatient. He was advised on the importance of reducing alcohol intake. (3) Musculoskeletal back pain Is this a current diagnosis for this admission?: Yes Summary: The patient endorses 3 day history of left upper back pain radiating to left chest. Pain is exacerbated with inhalation and the affected area is tender to palpation. 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 At time of discharge, the patient's pain was well controlled with as needed flexeril and motrin. He was provided a prescription for flexeril. (4) Obesity Is this a current diagnosis for this admission?: Yes Summary: Dietary discretion is advised; the patient was encouraged to eat a low sodium/ low fat diet and to gradually increase physical activity with goal of weight loss. He was advised to reduce alcohol use. (5) Rash Is this a current diagnosis for this admission?: Yes Summary: Patient has rash on his back, chest, upper extremities. He states he experiences this rash every year at this time, he was previously going to an waste/materials exchange specialist in [place] where he was regularly provided "allergy shots. " He was administered Solu-Medrol 125 mg IV in emergency department without improvement in appearance per patient and family. Pruritus did respond well to hydrocortisone cream. Recommend establishing with a primary care provider and discussing outpatient referral. He may also benefit from OTC hydrocortisone cream and antihistamines. (6) Tobacco abuse Is this a current diagnosis for this admission?: Yes Summary: Smoking cessation is encouraged; patient declined nicotine replacement therapy. (7) DNR (do not resuscitate) Is this a current diagnosis for this admission?: Yes - Additional Information Resuscitation Status: Do Not Resuscitate Discharge Diet: Cardiac Discharge Activity: Activity As Tolerated, Slowly Increase Activity Prescriptions: Aspirin [Ecotrin 81 mg EC Tablet] 81 mg PO DAILY #90 tabec Atorvastatin Calcium [Lipitor 10 mg Tablet] 10 mg PO QHS #30 tablet Cyclobenzaprine HCl [Flexeril 10 mg Tablet] 5 mg PO Q8HP PRN #14 tablet PRN Reason: Hydrocortisone [Hydrocortisone 1% Cream 28.35 gm] 1 applic TP QPM #1 tube Home Medications: Aspirin [Ecotrin 81 mg EC Tablet] 81 mg PO DAILY #90 tabec 04/03/18 Atorvastatin Calcium [Lipitor 10 mg Tablet] 10 mg PO QHS #30 tablet 04/03/18 Cyclobenzaprine HCl [Flexeril 10 mg Tablet] 5 mg PO Q8HP PRN #14 tablet Hydrocortisone [Hydrocortisone 1% Cream 28.35 gm] 1 applic TP QPM #1 tube 06/05/ 18 History of Present Illness History of Present Illness: Per H&P by FORREST Meléndez: DALLAS OTERO is a 47 year old male who presented to the emergency department with a 3 day history of left upper back pain radiating to the left anterior chest and left shoulder. The patient states that his pain originated in his left upper back and has progressively been getting worse over the last 3 days, slowly radiating around to his left shoulder and chest. The patient describes the pain as a pressure that is exacerbated with deep inhalation. The patient describes the pain as constant, so much so that it keeps him awake at night. The patient denies taking any home medication to help alleviate his pain. The patient denies any PMH other than seasonal allergies. He states he has not been to a doctor "in a long time." The patient recently relocated from [place] to [facility], states he began working 2 weeks ago at a local grocery [employer]. Endorses [id number] smoking history. Upon arrival to the emergency department, the patient received 5 mg IV morphine for his chest pain, which he states did not alleviate the pain. Additionally, the patient received 325 mg of aspirin and sublingual nitroglycerin, after which he endorsed chest pain relief. EKG demonstrates NSR, no evidence of acute ischemia or infarction. Initial troponin <0.012. All other lab work benign. CXR normal. CTA chest/abdomen done for chest pain with inhalation, negative for PE or other cardiopulmonary pathology. Upon assessment, the patient is resting comfortably in bed on room air. He endorses left chest/ upper back pain with inhalation, additionally he endorses left shoulder "soreness." Lung sounds are clear to auscultation. His left anterior chest and left scapular area are tender to palpation. Additionally, the patient has a macular rash covering his anterior chest, upper back, and bilateral upper extremities. Plan for admission to hospitalist service with cardiology consulting. Physical Exam Vital Signs: Temp Pulse Resp BP Pulse Ox 98.2 F 86 15 145/84 H 95 04/03/18 03:35 04/03/18 07:00 04/03/18 03:35 04/03/18 03:35 04/03/18 03:35 Intake & Output 04/02/18 04/03/18 04/04/18 06:59 06:59 06:59 Intake Total 1800 Output Total 1600 Balance 200 Weight 92.5 kg General appearance: PRESENT: no acute distress, cooperative, obese, well- developed, well-nourished Head exam: PRESENT: atraumatic, normocephalic Eye exam: PRESENT: conjunctiva pink, EOMI, PERRLA. ABSENT: scleral icterus Mouth exam: PRESENT: moist Neck exam: PRESENT: full ROM. ABSENT: carotid bruit, JVD, lymphadenopathy, thyromegaly Respiratory exam: PRESENT: chest wall tenderness - w/ deep inspiration, cough, and movement of Left arm, clear to auscultation tom. ABSENT: rales, rhonchi, wheezes Cardiovascular exam: PRESENT: RRR, +S1, +S2. ABSENT: diastolic murmur, rubs, systolic murmur Pulses: PRESENT: normal dorsalis pedis pul Vascular exam: PRESENT: normal capillary refill GI/Abdominal exam: PRESENT: normal bowel sounds, soft. ABSENT: distended, guarding, mass, organolmegaly, rebound, tenderness Rectal exam: PRESENT: deferred Extremities exam: PRESENT: full ROM. ABSENT: calf tenderness, clubbing, pedal edema Neurological exam: PRESENT: alert, awake, oriented to person, oriented to place , oriented to time, oriented to situation, CN II-XII grossly intact. ABSENT: motor sensory deficit Psychiatric exam: PRESENT: appropriate affect, normal mood. ABSENT: homicidal ideation, suicidal ideation Skin exam: PRESENT: dry, intact, rash - anterior chest wall, warm. ABSENT: cyanosis Results Laboratory Results: 04/03/18 02:50 04/03/18 02:50 04/03/18 04/03/18 04/03/18 02:50 02:50 02:50 WBC 15.9 H RBC 4.52 Hgb 14.7 Hct 42.6 MCV 94 MCH 32.6 MCHC 34.6 RDW 14.0 Plt Count 243 Sodium 139.0 Potassium 4.4 Chloride 108 H Carbon Dioxide 18 L Anion Gap 13 BUN 22 H Creatinine 0.76 Est GFR ( Amer) > 60 Est GFR (Non-Af Amer) > 60 Glucose 245 H Calcium 9.7 Phosphorus 3.7 Triglycerides 234 H Cholesterol 176.69 LDL Cholesterol Direct 122 H VLDL Cholesterol 46.8 H HDL Cholesterol 37 L 04/02/18 04/02/1804/03/18 15:23 20:48 02:50 Troponin I < 0.012 < 0.012 < 0.012 Impressions: Chest X-Ray 04/02/18 09:42 IMPRESSION: NO ACUTE RADIOGRAPHIC FINDING IN THE CHEST. Chest/Abdomen CTA 04/02/18 11:36 IMPRESSION: NORMAL CTA OF THE CHEST. NO PULMONARY EMBOLI. Qualifiers - * PATIENT BEING DISCHARGED WITH ANY OF THE FOLLOWING DIAGNOSIS: No Plan Discharge Plan: Discharge to home with self care. Follow up with primary care provider within 1 week. Follow up with Regulatory Compliance Director (was receiving "allergy shots" while in [place]) as needed. Follow up with Photostat Operator Helper for continued episodes of chest discomfort. Return to ED for acute chest pain that does not resolve with rest. Time Spent: Less than 30 Minutes <JOE KRAUSE - Last Filed: 04/04/18 15:57> General - Admit/Disc Date/PCP Admission Date/Primary Care Provider: 04/02/18 13:37 History of Present Illness History of Present Illness: DALLAS OTERO is a 47 year old male Physical Exam Vital Signs: Temp Pulse Resp BP Pulse Ox 98.2 F 86 15 145/90 H 95 04/03/18 16:23 04/03/18 16:23 04/03/18 16:23 04/03/18 16:23 04/03/18 16:23 Intake & Output 04/03/18 04/04/18 04/05/18 06:59 06:59 06:59 Intake Total 1800 Output Total 1600 Balance 200 Weight 92.5 kg Results Laboratory Results: 04/03/18 02:50 04/03/18 02:50 04/02/18 04/02/18 04/03/18 15:23 20:48 02:50 Troponin I < 0.012 < 0.012 < 0.012 Impressions: Chest X-Ray 04/02/18 09:42 IMPRESSION: NO ACUTE RADIOGRAPHIC FINDING IN THE CHEST. Chest/Abdomen CTA 04/02/18 11:36 IMPRESSION: NORMAL CTA OF THE CHEST. NO PULMONARY EMBOLI. Plan Discharge Plan: Co signing note for Radu Quick NP
== END 2018-04-03 16:51 | disposition home or self-care (01) ==
LOC: ER 09:39 → EH 13:37 → 5 16:12
PROVIDERS: ADMIT Internal Medicine; ATTEND Internal Medicine
DX: R07.89 Other chest pain (principal); R07.1 Chest pain on breathing; M54.6 Pain in thoracic spine; F10.10 Alcohol abuse, uncomplicated; E66.9 Obesity, unspecified; R21 Rash and other nonspecific skin eruption; Z68.36 Body mass index [BMI] 36.0-36.9, adult; L29.9 Pruritus, unspecified; F17.210 Nicotine dependence, cigarettes, uncomplicated; R06.02 Shortness of breath; G47.30 Sleep apnea, unspecified; R73.09 Other abnormal glucose; Z66 Do not resuscitate; Z90.49 Acquired absence of other specified parts of digestive tract; Z82.49 Family history of ischemic heart disease and other diseases of the circulatory system; Z91.09 Other allergy status, other than to drugs and biological substances
CPT/HCPCS: 93005 ×2; 94640; 99285; 96374; 96375; 36415 ×2; 82553; 82550; 83690; 84100; 85025; 85027; 80048; 80053; 84484 ×2; 83036; 80061; 93306; 93017; 71045; 78452; 71275; 93010 ×2; G0378 ×3; A9500; J2785; J3490 ×5; J2930; J1885; J2270 ×2; J1650; Q9969

== ENCOUNTER 2018-12-05 09:46 | Emergency (ER) | payer MEDICAID ==
--- NOTE | 2018-12-05 10:16 | ER Document Report ---
ED General - General Chief Complaint: Cough Stated Complaint: COUGH Time Seen by Provider: 12/05/18 10:06 Primary Care Provider: LIN WYATT DO [NO LOCAL MD] - Follow up as needed (or your primary care. ) Notes: Patient is a 48-year-old male that presents to the emergency department for chief complaint of cough and congestion. Patient reports his been having 3 weeks of a wet cough, with sinus congestion as well. Denies noting any fevers at home, he has had nausea but no vomiting associated with this. He said body aches because of the cough, and abdominal pain when he is coughing as well. He states he had some pain in his legs and arms as well as started about a ago. No sick contacts that he is aware of. He does smoke cigarettes on a daily basis, but has been having worsening cough associated to his decrease the amount of smoking. He did see his primary care and was prescribed codeine cough syrup without much relief of his symptoms. He has been taking [id number] medications as well to help with the symptoms, without much relief. Describes his pain at this time is a 1 out of 10, generalized body aches. Past Medical History: Diabetes mellitus, hypertension Past Surgical History: Appendectomy, knee surgery Social History: Admits to smoking cigarettes daily, denies alcohol or drug use. Family History: Reviewed and noncontributory for presenting illness Allergies: Reviewed, see documented allergy list. REVIEW OF SYSTEMS: Other than noted above, the 12 point review of systems was reviewed with the patient and were negative, all pertinent findings are included in the HPI. PHYSICAL EXAMINATION: Vital signs reviewed, nursing noted reviewed. GENERAL: Well-appearing, well-nourished and in no acute distress. HEAD: Atraumatic, normocephalic. EYES: Eyes appear normal, extraocular movements intact, sclera anicteric, conjunctiva are normal. ENT: nares patent, oropharynx clear without exudates. Moist mucous membranes. NECK: Normal range of motion, supple without lymphadenopathy LUNGS: Breath sounds clear to auscultation bilaterally and equal. No wheezes rales or rhonchi. HEART: Regular rate and rhythm without murmurs ABDOMEN: Soft, nontender, normoactive bowel sounds. No rebound, guarding, or rigidity. No masses appreciated. EXTREMITIES: Nontender, good range of motion, no pitting or edema. NEUROLOGICAL: No focal neurological deficits. Moves all extremities spontaneously Motor and sensory grossly intact on exam. PSYCH: Normal mood, normal affect. SKIN: Warm, Dry, normal turgor, no rashes or lesions noted on exposed skin TRAVEL OUTSIDE OF THE [place] IN LAST 30 DAYS: No - Related Data Allergies/Adverse Reactions: No Known Allergies Allergy (Verified 12/05/18 10:06) Past Medical History - Social History Smoking Status: Current Every Day Smoker Family History: Reviewed & Not Pertinent Renal/ Medical History: Denies: Hx Peritoneal Dialysis Past Surgical History: Reports: Hx Appendectomy - Immunizations Hx Diphtheria, Pertussis, Tetanus Vaccination: No Physical Exam - Vital signs Vitals: Temp Pulse Resp BP Pulse Ox 99.0 F 98 20 131/84 H 97 12/05/18 10:00 12/05/18 10:00 12/05/18 10:00 12/05/18 10:00 12/05/18 10:00 Course - Re-evaluation Re-evalutation: Patient seen and examined vital signs reviewed. Chest x-ray ordered to evaluate for possible pneumonia , patient did appear well on exam, did sound congested, did have a wet cough, but did not feel that the patient needed laboratory workup and blood work at this time Results were reviewed when available and demonstrated negative chest x-ray The patient was re-evaluated and was stable Evaluation was most consistent with productive cough, 3 weeks of cough and congestion, consistent with bronchitis, given that the patient had over 14 days of symptoms, despite taking [id number] medications, it did warrant a trial of oral antibiotics using Augmentin, also provided the patient with prescription for Mucinex, Flonase, and Tessalon Perles to help with his symptoms Results were discussed with the patient at this point, after careful consideration I feel that that patient can be discharged from the emergency department, the patient was educated treatments and reasons to return to the emergency department based on their presumed diagnosis as noted above, they were advised to followup with a primary care physician in 2-3 days. Patient was agreeable to plan of care. *Note is created using voice recognition software and may contain spelling, syntax or grammatical errors. Chest X-Ray 12/05/18 10:16 IMPRESSION: NO ACUTE RADIOGRAPHIC FINDING IN THE CHEST. - Vital Signs Vital signs: Temp Pulse Resp BP Pulse Ox 99.0 F 98 20 131/84 H 97 12/05/18 10:00 12/05/18 10:00 12/05/18 10:00 12/05/18 10:00 12/05/18 10:00 Discharge - Discharge Clinical Impression: Productive cough Condition: Stable Disposition: HOME, SELF-CARE Instructions: Bronchitis ([facility]) Additional Instructions: Please take all medications as prescribed, complete the total course of antibiotics prescribed and follow-up with your primary care physician. Prescriptions: Benzonatate [Tessalon Perle 100 mg Capsule] 100 mg PO Q8HP PRN #40 cap PRN Reason: Cough Amox Tr/Potassium Clavulanate [Augmentin 875-125 Tablet] 1 tab PO BID 10 Days #20 tablet Fluticasone Propionate [Flonase Nasal [place] 50 Mcg/[place] 16 gm] 1 spray NASL Q12 #1 inhaler Guaifenesin [Mucinex] 1,200 mg PO BID #20 tab.er.12h Referrals: LIN WYATT DO [NO LOCAL MD] - Follow up as needed (or your primary care. )
[2018-12-05 10:17] VITALS: BP 131/84
--- NOTE | 2018-12-05 10:48 | RADIOLOGY REPORT (SQ) ---
EXAM DESCRIPTION: CHEST 2 VIEWS COMPLETED DATE/TIME: 12/05/2018 10:29 am REASON FOR STUDY: cough COMPARISON: CT chest 04/02/2018 AP chest 04/02/2018 EXAM PARAMETERS: NUMBER OF VIEWS: two views TECHNIQUE: Digital Frontal and Lateral radiographic views of the chest acquired. RADIATION DOSE: NA LIMITATIONS: none FINDINGS: LUNGS AND PLEURA: No opacities, masses or pneumothorax. No pleural effusion. MEDIASTINUM AND HILAR STRUCTURES: No masses or contour abnormalities. HEART AND VASCULAR STRUCTURES: Heart normal size. No evidence for failure. BONES: No acute findings. HARDWARE: None in the chest. OTHER: No other significant finding. IMPRESSION: NO ACUTE RADIOGRAPHIC FINDING IN THE CHEST. TECHNICAL DOCUMENTATION: JOB ID: [id number] [employer]- All Rights Reserved Reading location - IP/workstation name: [email or web address]
== END 2018-12-05 11:09 | disposition home or self-care (01) ==
LOC: ER 09:46
DX: R05 Cough (principal); R09.81 Nasal congestion; M79.10 Myalgia, unspecified site; R10.9 Unspecified abdominal pain; M79.604 Pain in right leg; M79.605 Pain in left leg; M79.601 Pain in right arm; M79.602 Pain in left arm; F17.210 Nicotine dependence, cigarettes, uncomplicated; E11.9 Type 2 diabetes mellitus without complications; I10 Essential (primary) hypertension
CPT/HCPCS: 71046; 99283

== ENCOUNTER 2018-12-09 01:54 | Emergency (ER) | payer MEDICAID ==
[2018-12-09] MEDS ORDERED: HYDROMORPHONE HCL INJ/PF 2 MG/ML AMPULE IV ONE ×2 (02:05→03:03)
--- NOTE | 2018-12-09 02:14 | ER Document Report ---
ED General - General Chief Complaint: Painful Cough Stated Complaint: CHEST TIGHTNESS/CHEST WALL PAIN Time Seen by Provider: 12/09/18 02:04 Primary Care Provider: SOFY PRESSLEY MD [ACTIVE STAFF] - Follow up in 3-5 days Notes: Patient is a 48-year-old male who presents with complaints of abdominal pain. He says the pain started approximately 2 weeks ago. It started when he was having coughing fits. Since that has been having pain into his lower ribs and into his abdominal wall. He saw his primary care doctor was placed on codeine cough medicine. Is not helping and then he followed up with urgent care. The prescribed medicines which she has not taken. He used to drink alcohol every day. He said 3 weeks ago he quit drinking. He did drink some again tonight because of the pain. Pain got worse and therefore he came to the ER tonight. No fevers. Some nausea. No diarrhea. No blood in the stool. No other complaints at this time. He denies any trauma other than recently falling onto his right side tonight. He says his abdominal pain was already occurring before he fell. TRAVEL OUTSIDE OF THE [place] IN LAST 30 DAYS: No - Related Data Allergies/Adverse Reactions: No Known Allergies Allergy (Verified 12/09/18 02:34) Past Medical History - Social History Smoking Status: Current Every Day Smoker Frequency of alcohol use: Heavy Drug Abuse: None Family History: Reviewed & Not Pertinent - Past Medical History Cardiac Medical History: Reports: Hx Hypertension Endocrine Medical History: Reports: Hx Diabetes Mellitus Type 2 Renal/ Medical History: Denies: Hx Peritoneal Dialysis Past Surgical History: Reports: Hx Appendectomy, Hx Orthopedic Surgery - knee - Immunizations Hx Diphtheria, Pertussis, Tetanus Vaccination: No Review of Systems - Review of Systems Notes: My Normal Review Basic REVIEW OF SYSTEMS: CONSTITUTIONAL : Recent diagnosis of bronchitis. EENT: Denies eye, ear, throat, or mouth pain or symptoms. Denies nasal or sinus congestion. CARDIOVASCULAR: Denies chest pain except for some right-sided rib pain. RESPIRATORY: Recurrent coughing. GASTROINTESTINAL: Abdominal pain. Denies nausea, vomiting, or diarrhea. GENITOURINARY: Denies difficulty urinating, painful urination, burning, frequency, or blood in urine. MUSCULOSKELETAL: Denies neck or back pain or joint pain or swelling. SKIN: Denies rash or skin lesions. HEMATOLOGIC : Denies easy bruising or bleeding. NEUROLOGICAL: Denies altered mental status or loss of consciousness. Denies headache. Denies weakness or paralysis or loss of use of either side. Denies p roblems with gait or speech. Denies sensory or motor loss. ALL OTHER SYSTEMS REVIEWED AND NEGATIVE. Physical Exam - Vital signs Vitals: Pulse Resp BP Pulse Ox 110 H 24 H 172/97 H 100 12/09/18 01:58 12/09/18 01:58 12/09/18 01:58 12/09/18 01:58 - Notes Notes: General Appearance: Well nourished, alert, cooperative, no acute distress, moderate to severe obvious discomfort. Vitals: reviewed, See vital signs table. Head: no swelling or tenderness to the head Eyes: PERRL, EOMI, Conjuctiva clear Mouth: No decreasd moisture Throat: No tonsillar inflammation, No airway obstruction, No lymphadenopathy Neck: Supple, no neck tenderness, No thyromegaly Lungs: No wheezing, No rales, No rhonci, No accessory muscle use, good air exchange bilaterally. Heart: Normal rate, Regular rythm, No murmur, no rub Abdomen: Patient does have an obese abdomen that is distended. Paramedics said that the told him that this is actually the way his abdomen normally appears. He denies history of liver problems however his liver is obviously very enlarged on exam palpation of his abdomen. Patient's abdomen is very tender over the upper portions of both right and left side of the abdomen. Lower portions of abdomen are nontender. Extremities: good pulses in all extremities, no swelling or tenderness in the extremities, no edema. Skin: warm, dry, appropriate color, no rash Neuro: speech clear, oriented x 3, normal affect, responds appropriately to questions. Course - Re-evaluation Re-evalutation: 12/09/18 02:13 I did do bedside fast exam the patient's abdomen. Patient has what may be a very thin area of fluid around the liver which I suspect most likely could be ascites from liver disease. The remainder of the abdomen does not show any evidence of free fluid on FAST exam. 12/09/18 03:03 On reevaluation patient still has some abdominal pain but is improving. Does have some leukocytosis. He still has pain to palpation. I will obtain a CT scan with IV contrast to investigate further. I explained the plan with the patient and he is agreeable to it. 12/09/18 05:03 Patient is pain is abdomen is significantly improved. I do suspect that most likely he has abdominal wall tenderness due to recurrent coughing. CT scan is negative. He is however continuously tachycardic. Heart rate is between 105 110 consistently. He is not distressed. He otherwise looks well. Give him some vitamin K as this could be withdrawal but the patient's wears he had not drank for the last 3 weeks until tonight when he had some alcohol. He does not have any tremor consistent with withdrawal. His difficulty breathing coughing has been ongoing for a while now. I think PE is less likely; however, due to his persistent tachycardia will obtain a d-dimer to see if it is positive. If positive I will go forward with further imaging studies. 12/09/18 06:28 Patient's d-dimer is negative. I did evaluate the patient. He looks well. He has no increased work of breathing. His abdominal pain is much improved. Still some tenderness to palpation over the bilateral upper portions of his abdomen. This again seems to be related to his recurrent coughing. He does have a large liver and informed him that continued use of alcohol will lead to liver failure and that he would most likely from liver failure if he continues to drink alcohol. Patient shows understanding of this and says he will continue to try to stop drinking. I did review previous visits here. It appears that the patient always has some mild tachycardia. Only saw one time where his heart rate was in the 80s. Other times his heart rate was in the low 100s-1 teens. This may be his baseline heart rate. Patient himself is not too sure what his baseline heart rate is. Clinically looks very well at this point. CT scan of his abdomen pelvis is negative. His laboratory evaluation is unremarkable. I feel that he is safe to be discharged home. I think I asked him about his previous visit last week when he was evaluated by Dr. Hsu. He had prescribed him antibiotics as well as other medications. He says he did not feel these could not have the money. He says he now has the money to fill them and he still describes that he would fill these prescriptions. Urgent return to ER if he has worsening intractable pain, vomiting, difficulty breathing, fevers, or if he feels that he is worsening. Patient agrees with plan and will be discharged home. Dictation of this chart was performed using voice recognition software; therefore, there may be some unintended grammatical errors. - Vital Signs Vital signs: Temp Pulse Resp BP Pulse Ox 97.7 F 110 H 22 H 129/78 H 83 L 12/09/18 05:31 12/09/18 01:58 12/09/18 05:31 12/09/18 05:31 12/09/18 05:31 - Laboratory Result Diagrams: 12/09/18 02:25 12/09/18 02:25 Laboratory results interpreted by me: 12/09/18 12/09/18 02:25 02:25 WBC 14.4 H Absolute Neutrophils 8.8 H Carbon Dioxide 21 L Glucose 253 H AST 67 H ALT 79 H Discharge - Discharge Clinical Impression: Cough, Abdominal pain Condition: Good Disposition: HOME, SELF-CARE Additional Instructions: Please fill the prescriptions with that were prescribed to you by Dr. Hsu last time you were here. I have prescribed a muscle relaxer to help with your spasming. Please return to the ER if you develop fevers, vomiting, worsening difficulty breathing, or if you feel that you are worsening. Please stay away form smoking and alcohol use. Tour oxygen sometimes drops when you fall asleep. This is suggestive of sleep apnea. Please follow up with Dr. Pressley to arrange evaluation for sleep apnea. Follow up with your doctor in 1-2 days for reevaluation. Prescriptions: Metaxalone [Skelaxin 800 mg Tablet] 800 mg PO ASDIR PRN #20 tablet PRN Reason: Referrals: SOFY PRESSLEY MD [ACTIVE STAFF] - Follow up in 3-5 days
[2018-12-09 02:36] LABS: ABSOLUTE EOSINOPHILS # (AUTO) 0.2 10^3/uL (0.0-0.6); ABSOLUTE LYMPHOCYTES (AUTO) 4.4 10^3/uL (0.5-4.7); ABSOLUTE MONOCYTES (AUTO) 0.9 10^3/uL (0.1-1.4); ABSOLUTE NEUT (AUTO) 8.8 10^3/uL (1.7-8.2); BASOPHILS % (AUTO) 0.3 % (0-2); EOSINOPHILS % (AUTO) 1.6 % (0-6); HEMATOCRIT 44.6 % (37.9-51.0); HEMOGLOBIN 15.3 g/dL (13.5-17.0); LYMPHOCYTES % (AUTO) 30.5 % (13-45); MEAN CORPUSCULAR HEMOGLOBIN 32.7 pg (27.0-33.4); MEAN CORPUSCULAR HGB CONC 34.4 g/dL (32.0-36.0); MEAN CORPUSCULAR VOLUME 95 fl (80-97); MONOCYTES % (AUTO) 6.4 % (3-13); PLATELET COUNT 280 10^3/uL (150-450); RED BLOOD COUNT 4.68 10^6/uL (4.35-5.55); SEGMENTED NEUTROPHILS % (AUTO) 61.2 % (42-78); TOTAL CELLS COUNTED % (AUTO) 100 %; WHITE BLOOD COUNT 14.4 10^3/uL (4.0-10.5)
[2018-12-09 02:42] LABS: INTERNATIONAL RATION (INR) 0.93; PROTHROMBIN TIME 12.9 SEC (11.4-15.4)
--- NOTE | 2018-12-09 02:55 | RADIOLOGY REPORT (SQ) ---
EXAM DESCRIPTION: XR CHEST 1 VIEW COMPLETED DATE/TME: 12/09/2018 02:05 CLINICAL HISTORY: 48 years, Male, abdominal pain, dyspnea COMPARISON: 12/05/2018 chest NUMBER OF VIEWS: 1 TECHNIQUE: Portable chest LIMITATIONS: None. FINDINGS: Heart size is normal. Lungs are clear. No pneumothorax. Mild elevation right hemidiaphragm IMPRESSION: No acute cardiopulmonary process copyright 2010 [employer]- All Rights Reserved
[2018-12-09 02:58] LABS: ALANINE AMINOTRANSFERASE 79 U/L (21-72); ALBUMIN 4.7 g/dL (3.5-5.0); ALKALINE PHOSPHATASE 88 U/L (38-126); ANION GAP 16 (5-19); ASPARTATE AMINO TRANSFERASE 67 U/L (17-59); BILIRUBIN,DIRECT 0.2 mg/dL (0.0-0.4); BILIRUBIN,TOTAL 0.2 mg/dL (0.2-1.3); BLOOD UREA NITROGEN 12 mg/dL (7-20); CALCIUM 9.6 mg/dL (8.4-10.2); CARBON DIOXIDE 21 mmol/L (22-30); CHLORIDE 105 mmol/L (98-107); GLUCOSE 253 mg/dL (75-110); LIPASE 194.1 U/L (23-300); POTASSIUM 4.5 mmol/L (3.6-5.0); SODIUM 141.7 mmol/L (137-145); TOTAL PROTEIN 7.1 g/dL (6.3-8.2)
[2018-12-09] MEDS ORDERED: NORMAL SALINE 1000 ML 1,000 ML IV ONE (03:02)
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
[2018-12-09] MEDS ORDERED: LORAZEPAM INJ 2 MG/1 ML VIAL IV ONE (04:14)
[2018-12-09 05:54] VITALS: BP 129/78
--- NOTE | 2018-12-10 00:07 | EKG REPORT ---
SEVERITY:- OTHERWISE NORMAL ECG - SINUS TACHYCARDIA : Confirmed by: Eliana Crews 10-Dec-2018 00:07:07
== END 2018-12-09 06:07 | disposition home or self-care (01) ==
LOC: ER 01:54
DX: R05 Cough (principal); R16.0 Hepatomegaly, not elsewhere classified; R10.9 Unspecified abdominal pain; R07.81 Pleurodynia; R11.0 Nausea; R10.811 Right upper quadrant abdominal tenderness; R10.812 Left upper quadrant abdominal tenderness; I10 Essential (primary) hypertension; E11.9 Type 2 diabetes mellitus without complications; F17.200 Nicotine dependence, unspecified, uncomplicated; Z90.49 Acquired absence of other specified parts of digestive tract
CPT/HCPCS: 93005; 96376; 99284; 96361; 96374; 96375; 36415; 83690; 85025; 85610; 80053; 85379; 71045; 74177; 93010; J1170; J2060; J7030

== ENCOUNTER 2019-04-07 00:51 | Emergency (ER) | payer MEDICAID ==
[2019-04-07] MEDS ORDERED: LIDOCAINE 1%/EPINEPHRINE INJ 20 ML VIAL INJ ONE (01:52)
[2019-04-07] MEDS ORDERED: ACETAMINOPHEN 325 MG TABLET PO ONE (01:52)
[2019-04-07] MEDS ORDERED: DIPH/PERTUSS(ACELL)/TETANUS VAC/PF 0.5 ML SYR (>=10YO) IM ONE (01:52)
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
[2019-04-07 05:30] VITALS: BP 118/80
== END 2019-04-07 03:20 | disposition home or self-care (01) ==
LOC: ER 00:51
DX: S01.111A Laceration without foreign body of right eyelid and periocular area, initial encounter (principal); S60.511A Abrasion of right hand, initial encounter; H11.31 Conjunctival hemorrhage, right eye; M25.531 Pain in right wrist; M79.641 Pain in right hand; R51 Headache; M54.2 Cervicalgia; Y00.XXXA Assault by blunt object, initial encounter; F10.129 Alcohol abuse with intoxication, unspecified; I10 Essential (primary) hypertension; E11.9 Type 2 diabetes mellitus without complications; Z87.891 Personal history of nicotine dependence
CPT/HCPCS: 99284; 90471; 73130; 73110; 70450; 72125; 90715; 12011; J3490 ×2

== ENCOUNTER 2019-06-17 12:41 | Emergency (ER) | payer OTHER, MEDICAID ==
[2019-06-17] MEDS ORDERED: NORMAL SALINE 1000 ML 1,000 ML IV ONE (13:02)
--- NOTE | 2019-06-17 13:03 | ER Document Report ---
ED Medical Screen (RME) - General Chief Complaint: Syncope Stated Complaint: PASSOUT Time Seen by Provider: 06/17/19 12:53 Mode of Arrival: Ambulatory Information source: Patient Notes: Patient presents to the emergency department after suffering a syncopal episode while at work. Patient reports he was outside weed whHitlantising when he all of a sudden felt dizzy and then apparently had a syncopal episode. Bystanders report that patient fell backwards hitting the back of his head onto a grassy surface. Bystanders also report patient had bilateral arm shaking after he fell to the ground. Patient is alert, oriented, reporting mild headache to the back of his head but denies any other symptoms. Patient denies any history of seizures or syncopal episodes in the past. Exam: Patient alert, oriented, answering all questions appropriately No focal neurological deficits noted. I have greeted and performed a rapid initial assessment of this patient. A comprehensive ED assessment and evaluation of the patient, analysis of test results and completion of the medical decision making process will be conducted by additional ED providers. I have specifically instructed the patient or fami ly members with the patient to immediately return to any nursing staff should anything change in the patient's condition or with their chief complaint. This medical record was dictated with voice recognizing software. There may be grammatical, syntax errors that are unintended. TRAVEL OUTSIDE OF THE [place] IN LAST 30 DAYS: No - Related Data Allergies/Adverse Reactions: No Known Allergies Allergy (Verified 12/09/18 02:34) Past Medical History - Past Medical History Cardiac Medical History: Reports: Hx Hypertension Endocrine Medical History: Reports: Hx Diabetes Mellitus Type 2 Renal/ Medical History: Denies: Hx Peritoneal Dialysis Past Surgical History: Reports: Hx Appendectomy, Hx Orthopedic Surgery - knee - Immunizations Immunizations up to date: No Hx Diphtheria, Pertussis, Tetanus Vaccination: Yes History of Influenza Vaccine for 07/2017 - 12/2017 Season: No Physical Exam - Vital signs Vitals: Temp Pulse Resp BP Pulse Ox 98.6 F 102 H 18 117/93 H 97 06/17/19 12:49 06/17/19 12:49 06/17/19 12:49 06/17/19 12:49 06/17/19 12:49 Course - Vital Signs Vital signs: Temp Pulse Resp BP Pulse Ox 98.6 F 102 H 18 117/93 H 97 06/17/19 12:49 06/17/19 12:49 06/17/19 12:49 06/17/19 12:49 06/17/19 12:49
[2019-06-17 13:24] LABS: ABSOLUTE BASOPHILS # (AUTO) 0.1 10^3/uL (0.0-0.2); ABSOLUTE EOSINOPHILS # (AUTO) 0.1 10^3/uL (0.0-0.6); ABSOLUTE LYMPHOCYTES (AUTO) 3.7 10^3/uL (0.5-4.7); ABSOLUTE MONOCYTES (AUTO) 0.7 10^3/uL (0.1-1.4); ABSOLUTE NEUT (AUTO) 9.2 10^3/uL (1.7-8.2); BASOPHILS % (AUTO) 0.4 % (0-2); EOSINOPHILS % (AUTO) 0.8 % (0-6); HEMATOCRIT 46.1 % (37.9-51.0); HEMOGLOBIN 16.1 g/dL (13.5-17.0); LYMPHOCYTES % (AUTO) 27.1 % (13-45); MEAN CORPUSCULAR HEMOGLOBIN 32.9 pg (27.0-33.4); MEAN CORPUSCULAR VOLUME 94 fl (80-97); MONOCYTES % (AUTO) 5.1 % (3-13); PLATELET COUNT 256 10^3/uL (150-450); RED BLOOD COUNT 4.91 10^6/uL (4.35-5.55); RED CELL DISTRIBUTION WIDTH 13.7 % (11.5-14.0); SEGMENTED NEUTROPHILS % (AUTO) 66.6 % (42-78); TOTAL CELLS COUNTED % (AUTO) 100 %; WHITE BLOOD COUNT 13.7 10^3/uL (4.0-10.5)
[2019-06-17 13:45] LABS: ALBUMIN 4.7 g/dL (3.5-5.0); ALKALINE PHOSPHATASE 76 U/L (38-126); ANION GAP 12 (5-19); ASPARTATE AMINO TRANSFERASE 36 U/L (17-59); BILIRUBIN,DIRECT 0.3 mg/dL (0.0-0.4); BILIRUBIN,TOTAL 0.5 mg/dL (0.2-1.3); BLOOD UREA NITROGEN 15 mg/dL (7-20); CALCIUM 10.3 mg/dL (8.4-10.2); CARBON DIOXIDE 24 mmol/L (22-30); CHLORIDE 101 mmol/L (98-107); GLUCOSE 116 mg/dL (75-110); POTASSIUM 4.1 mmol/L (3.6-5.0); TOTAL PROTEIN 7.5 g/dL (6.3-8.2)
[2019-06-17 13:51] LABS: APPEARANCE,URINE CLOUDY; BILIRUBIN,URINE MODERATE (NEGATIVE); COLOR,URINE DARK YELLOW; GLUCOSE, URINE NEGATIVE (NEGATIVE); KETONES,URINE TRACE mg/dL (NEGATIVE); LEUKOCYTE ESTERASE,URINE TRACE (NEGATIVE); NITRITE,URINE NEGATIVE (NEGATIVE); PROTEIN,URINE 100 mg/dL (NEGATIVE); URINE SPECIFIC GRAVITY 1.031
--- NOTE | 2019-06-17 14:13 | RADIOLOGY REPORT (SQ) ---
EXAM DESCRIPTION: CT HEAD WITHOUT COMPLETED DATE/TIME: 06/17/2019 1:56 pm REASON FOR STUDY: syncope, hit head COMPARISON: 04/07/2019 TECHNIQUE: Axial images acquired through the brain without intravenous contrast. Images reviewed wi th bone, brain and subdural windows. Additional sagittal and coronal reconstructions were generated. Images stored on PACS. All CT scanners at this facility use dose modulation, iterative reconstruction, and/or weight based d osing when appropriate to reduce radiation dose to as low as reasonably achievable (ALARA). [facility]: Dose Right [facility]: CareDose [facility]: Dose Right [facility]: Teradose 4D [facility]: PSI Systems RADIATION DOSE: CT Rad equipment meets quality standard of care and radiation dose reduction techniq ues were employed. CTDIvol: 48.6 mGy. DLP: 855 mGy-cm. mGy. LIMITATIONS: None. FINDINGS: VENTRICLES: Normal size and contour. CEREBRUM: No masses. No hemorrhage. No midline shift. No evidence for acute infarction. Normal gra y/white matter differentiation. No areas of low density in the white matter. CEREBELLUM: No masses. No hemorrhage. No alteration of density. No evidence for acute infarction. EXTRAAXIAL SPACES: No fluid collections. No masses. ORBITS AND GLOBE: No intra- or extraconal masses. Normal contour of globe without masses. CALVARIUM: No fracture. PARANASAL SINUSES: Chronic opacification left maxillary sinus. SOFT TISSUES: No mass or hematoma. OTHER: No other significant finding. IMPRESSION: NORMAL BRAIN CT WITHOUT CONTRAST. EVIDENCE OF ACUTE STROKE: NO. COMMENT: Quality ID # [id number]: Final reports with documentation of one or more dose reduction techniques (e.g., Automated exposure control, adjustment of the mA and/or kV according to patient size, use of iterative reconstruction technique) TECHNICAL DOCUMENTATION: JOB ID: [id number] [employer]- All Rights Reserved Reading location - IP/workstation name: [email or web address]
[2019-06-17 15:12] LABS: URINE AMPHETAMINES SCREEN NEGATIVE; URINE BARBITURATES SCREEN NEGATIVE; URINE BENZODIAZEPINES SCREEN NEGATIVE; URINE COCAINE SCREEN NEGATIVE; URINE MARIJUANA (THC) SCREEN NEGATIVE; URINE METHADONE SCREEN NEGATIVE; URINE PHENCYCLIDINE SCREEN NEGATIVE
[2019-06-17] MEDS ORDERED: KETOROLAC TROMETHAMINE INJ/PF 30 MG/1 ML SDV IV ONE (15:19)
--- NOTE | 2019-06-17 15:26 | ER Document Report ---
ED General - General Chief Complaint: Syncope Stated Complaint: PASSOUT Time Seen by Provider: 06/17/19 12:53 Primary Care Provider: ADINA HOLLOWAY MD [Primary Care Provider] - Follow up as needed Mode of Arrival: Ambulatory TRAVEL OUTSIDE OF THE [place] IN LAST 30 DAYS: No - HPI Notes: Patient is a 48-year-old male who presents to the emergency department for evaluation of possible syncopal episode. He works in [employer], was outside doing some weed eating. He states he had a syncopal episode. It was witnessed that he fell backwards, striking his head. There was evidently some arm shaking following this. The patient has no memory of the event. He states he does not remember feeling dizzy beforehand. He states he is a mild headache at this time. He denies any visual changes. Speaking and swallowing normally. Moving arms and legs without difficulty. - Related Data Allergies/Adverse Reactions: No Known Allergies Allergy (Verified 12/09/18 02:34) Past Medical History - General Information source: Patient - Social History Smoking Status: Former Smoker Chew tobacco use (# tins/day): No Frequency of alcohol use: None - Patient used to be a heavy drinker, quit drinking alcohol at his last admission Drug Abuse: None Family History: Reviewed & Not Pertinent Patient has suicidal ideation: No Patient has homicidal ideation: No - Past Medical History Cardiac Medical History: Reports: Hx Hypertension Endocrine Medical History: Reports: Hx Diabetes Mellitus Type 2 Renal/ Medical History: Denies: Hx Peritoneal Dialysis Past Surgical History: Reports: Hx Appendectomy, Hx Orthopedic Surgery - knee - Immunizations Immunizations up to date: No Hx Diphtheria, Pertussis, Tetanus Vaccination: Yes Review of Systems - Review of Systems Constitutional: No symptoms reported EENT: No symptoms reported Cardiovascular: See HPI Respiratory: No symptoms reported Gastrointestinal: No symptoms reported Genitourinary: No symptoms reported Musculoskeletal: No symptoms reported Skin: No symptoms reported Neurological/Psychological: See HPI Physical Exam - Vital signs Vitals: Temp Pulse Resp BP Pulse Ox 98.6 F 102 H 18 117/93 H 97 06/17/19 12:49 06/17/19 12:49 06/17/19 12:49 06/17/19 12:49 06/17/19 12:49 - Notes Notes: Vital signs reviewed, please refer to chart. Head is normocephalic. Mild tenderness over the right occiput. Pupils equal round, reactive to light. Neck is supple without meningismus. No midline tenderness or step-off. No paraspinal musculature tenderness is appreciated. Heart is regular rate and rhythm. Lungs are clear to auscultation bilaterally. Abdomen is soft, nontender, normoactive bowel sounds throughout. Extremities without cyanosis, clubbing. Posterior calves are nontender. Peripheral pulses are equal. Skin is warm and dry. Patient is awake, alert, oriented x3. Cranial nerves II - XII are grossly intact without focal neurological deficits. Strength is plus 5 out of 5 bilateral upper and lower extremities. Sensation is intact. Reflexes symmetrical. Intact ggihgf-pubm-[id number], rapid alternating movements, he el-to-cunningham. Course - Re-evaluation Re-evalutation: 06/17/19 15:22 Patient presents to the emergency department for evaluation. I am unsure as to whether or not this patient underwent a syncopal episode or a seizure. I do not have any of the other witnesses here to corroborate his story. He did state that he has no memory of the event, he felt slightly confused upon awaking. The patient does not drive. I explained to him that I cannot prove that he did not have a seizure, and I would be inclined to have him follow-up with primary care for further evaluation. He voiced understanding to this. His urine did reveal a high specific gravity, he was given IV fluids. At this point no evidence of the patient home. Again he is told no driving or operating heavy machinery until cleared by primary care/neurology. He voiced understanding. He is to return to the ED with worsening or new concerning symptoms of any sort. - Vital Signs Vital signs: Temp Pulse Resp BP Pulse Ox 98.6 F 102 H 20 161/103 H 99 06/17/19 12:49 06/17/19 12:49 06/17/19 14:01 06/17/19 14:01 06/17/19 14:01 - Laboratory Result Diagrams: 06/17/19 13:10 06/17/19 13:10 Laboratory results interpreted by me: 06/17/19 06/17/19 06/17/19 13:10 13:10 13:20 WBC 13.7 H Absolute Neutrophils 9.2 H Glucose 116 H Calcium 10.3 H Urine Protein 100 H Urine Ketones TRACE H Urine Bilirubin MODERATE H Urine Urobilinogen 4.0 H Ur Leukocyte Esterase TRACE H Urine Ascorbic Acid 20 H - EKG Interpretation by Me Additional EKG results interpreted by me: 06/17/19 15:25 Sinus mechanism with a rate of 90 bpm. Normal axis and intervals, no acute ST changes concerning for ischemia or infarction. Discharge - Discharge Clinical Impression: Syncope and collapse Condition: Stable Disposition: HOME, SELF-CARE Instructions: Syncopal Episode ([facility]), New Seizure ([facility]) Additional Instructions: It is unclear at this time as to whether or not you had a seizure or you simply passed out. No operating heavy machinery or driving until cleared. Rest. Follow-up with primary care this week. Continue your home medications as prescribed. Return to the emergency department with worsening or new concerning symptoms of any sort. Referrals: ADINA HOLLOWAY MD [Primary Care Provider] - Follow up as needed
[2019-06-17 15:40] VITALS: BP 159/95
--- NOTE | 2019-06-17 15:53 | EKG REPORT ---
SEVERITY:- NORMAL ECG - SINUS RHYTHM : Confirmed by: Ashlie Lundberg MD 17-Jun-2019 15:51:25
== END 2019-06-17 15:40 | disposition home or self-care (01) ==
LOC: ER 12:41
DX: R55 Syncope and collapse (principal); I10 Essential (primary) hypertension; E11.9 Type 2 diabetes mellitus without complications
CPT/HCPCS: 93005; 36415; 83735; 85025; 80053; 81001; 80307; 70450; 93010; J1885; J7030; 99284

== ENCOUNTER 2019-07-20 04:07 | Emergency (ER) | payer MEDICAID, OTHER ==
[2019-07-20 04:41] LABS: ABSOLUTE BASOPHILS # (AUTO) 0.1 10^3/uL (0.0-0.2); ABSOLUTE EOSINOPHILS # (AUTO) 0.3 10^3/uL (0.0-0.6); ABSOLUTE LYMPHOCYTES (AUTO) 4.1 10^3/uL (0.5-4.7); ABSOLUTE MONOCYTES (AUTO) 0.6 10^3/uL (0.1-1.4); ABSOLUTE NEUT (AUTO) 5.4 10^3/uL (1.7-8.2); BASOPHILS % (AUTO) 0.6 % (0-2); EOSINOPHILS % (AUTO) 3.2 % (0-6); HEMATOCRIT 43.6 % (37.9-51.0); HEMOGLOBIN 15.2 g/dL (13.5-17.0); LYMPHOCYTES % (AUTO) 39.1 % (13-45); MEAN CORPUSCULAR HGB CONC 34.8 g/dL (32.0-36.0); MEAN CORPUSCULAR VOLUME 95 fl (80-97); MONOCYTES % (AUTO) 5.4 % (3-13); PLATELET COUNT 225 10^3/uL (150-450); RED BLOOD COUNT 4.61 10^6/uL (4.35-5.55); RED CELL DISTRIBUTION WIDTH 13.9 % (11.5-14.0); SEGMENTED NEUTROPHILS % (AUTO) 51.7 % (42-78); TOTAL CELLS COUNTED % (AUTO) 100 %; WHITE BLOOD COUNT 10.5 10^3/uL (4.0-10.5)
[2019-07-20 04:47] LABS: PROTHROMBIN TIME 13.2 SEC (11.4-15.4)
[2019-07-20 05:10] LABS: ALBUMIN 4.1 g/dL (3.5-5.0); ALKALINE PHOSPHATASE 75 U/L (38-126); ANION GAP 13 (5-19); ASPARTATE AMINO TRANSFERASE 30 U/L (17-59); BILIRUBIN,DIRECT 0.2 mg/dL (0.0-0.4); BILIRUBIN,TOTAL 0.2 mg/dL (0.2-1.3); BLOOD UREA NITROGEN 12 mg/dL (7-20); CALCIUM 9.2 mg/dL (8.4-10.2); CARBON DIOXIDE 21 mmol/L (22-30); CHLORIDE 108 mmol/L (98-107); CREATINE KINASE 277 U/L (55-170); GLUCOSE 137 mg/dL (75-110); POTASSIUM 4.1 mmol/L (3.6-5.0); TOTAL PROTEIN 6.5 g/dL (6.3-8.2)
[2019-07-20 05:22] LABS: CREATINE KINASE MB 2.91 ng/mL (<4.55)
[2019-07-20 05:29] LABS: TROPONIN I < 0.012 ng/mL
[2019-07-20] MEDS ORDERED: NORMAL SALINE 1000 ML 1,000 ML IV ONE (05:43)
--- NOTE | 2019-07-20 05:59 | RADIOLOGY REPORT (SQ) ---
EXAM DESCRIPTION: XR CHEST 2 VIEWS COMPLETED DATE/TME: 07/20/2019 00:00 CLINICAL HISTORY: 48 years, Male, chest pain COMPARISON: 12/05/2018 chest NUMBER OF VIEWS: 2 TECHNIQUE: 2 views of the chest LIMITATIONS: None. FINDINGS: Heart size normal. Lungs clear. No pneumothorax IMPRESSION: Negative chest copyright 2010 [employer]- All Rights Reserved
--- NOTE | 2019-07-20 06:07 | ER Document Report ---
ED General - General Chief Complaint: Chest Pain Stated Complaint: CHEST PAIN Time Seen by Provider: 07/20/19 05:43 Primary Care Provider: JAJA HAWK PA [Primary Care Provider] - Follow up as needed TRAVEL OUTSIDE OF THE [place] IN LAST 30 DAYS: No - HPI Notes: This is a 48-year-old gentleman who presents today with a complaint of pain across his chest wall for the past 1 week. Pain has been constant, associated with cough and congestion. He also describes sinus drainage and postnasal drip. Patient states he feels slightly dizzy. He also admits to drinking heavily last night. He denies any fever or chills. He denies any recent travel. He denies any vomiting or diarrhea. He describes his symptoms as moderate. His pain is nonradiating, and has been constant for the past week. It is worse with coughing. - Related Data Allergies/Adverse Reactions: No Known Allergies Allergy (Verified 12/09/18 02:34) Past Medical History - Social History Smoking Status: Current Every Day Smoker Chew tobacco use (# tins/day): No Frequency of alcohol use: Heavy Drug Abuse: None Family History: Reviewed & Not Pertinent Patient has suicidal ideation: No Patient has homicidal ideation: No - Past Medical History Cardiac Medical History: Reports: Hx Hypertension Endocrine Medical History: Reports: Hx Diabetes Mellitus Type 2 Renal/ Medical History: Denies: Hx Peritoneal Dialysis Past Surgical History: Reports: Hx Appendectomy, Hx Orthopedic Surgery - knee - Immunizations Immunizations up to date: No Hx Diphtheria, Pertussis, Tetanus Vaccination: Yes Review of Systems - Review of Systems Constitutional: denies: Fever EENT: Nose congestion, Sinus pressure, Vertigo Cardiovascular: Chest pain, Dyspnea. denies: Palpitations, Heart racing, Syncope Respiratory: Cough, Short of breath Gastrointestinal: denies: Abdominal pain, Vomiting -: Yes All other systems reviewed and negative Physical Exam - Vital signs Vitals: Pulse Ox 97 07/20/19 04:07 - General General appearance: Appears well, Alert - HEENT Head: Normocephalic, Atraumatic Eyes: Normal Pupils: PERRL - Respiratory Respiratory status: No respiratory distress Chest status: Nontender Breath sounds: Normal Chest palpation: Tender - Cardiovascular Rhythm: Regular Heart sounds: Normal auscultation Murmur: No - Abdominal Inspection: Normal Distension: No distension Bowel sounds: Normal Tenderness: Nontender Organomegaly: No organomegaly - Extremities General upper extremity: Normal inspection, Nontender, Normal color, Normal ROM, Normal temperature General lower extremity: Normal inspection, Nontender, Normal color, Normal ROM, Normal temperature, Normal weight bearing. No: Anitha's sign - Neurological Neuro grossly intact: Yes Cognition: Normal Orientation: AAOx4 - Nonfocal neurologic exam. There is no motor, sensory or cerebellar deficits. Everly Coma Scale Eye Opening: Spontaneous Everly Coma Scale Verbal: Oriented Everly Coma Scale Motor: Obeys Commands Everly Coma Scale Total: 15 Speech: Normal Motor strength normal: LUE, RUE, LLE, RLE Sensory: Normal Course - Re-evaluation Re-evalutation: 07/20/19 06:13 Differential diagnosis includes costochondritis versus pneumonia versus bronchitis versus URI. There is no clinical suspicion for acute coronary syndrome with 1 week of constant, atypical, reproducible chest pain. Cannot rule out ACS with one negative troponin. Dizziness likely secondary to BPV. EKG shows normal sinus rhythm at 84 bpm. Normal intervals. No acute injury pattern. 07/20/19 09:49 Patient reevaluated. Patient is doing well. Repeat troponin is negative. Labs and imaging reviewed and discussed with patient. He is stable for discharge. We will put him on something for his cough. Heart Score 1 07/20/19 09:52 - Vital Signs Vital signs: Temp Pulse Resp BP Pulse Ox 98.3 F 84 18 111/58 L 98 07/20/19 04:14 07/20/19 04:14 07/20/19 06:31 07/20/19 06:31 07/20/19 06:31 - Laboratory Result Diagrams: 07/20/19 04:32 07/20/19 04:32 Laboratory results interpreted by me: 07/20/19 04:32 Chloride 108 H Carbon Dioxide 21 L Glucose 137 H Creatine Kinase 277 H - EKG Interpretation by Ut EKG shows normal: Sinus rhythm Rate: Normal Rhythm: NSR When compared to previous EKG there are: No significant change - No acute injury pattern Discharge - Discharge Clinical Impression: Costochondritis, Atypical chest pain URI (upper respiratory infection) Qualifiers: URI type: unspecified URI Qualified Code(s): J06.9 - Acute upper respiratory infection, unspecified Condition: Good Disposition: HOME, SELF-CARE Instructions: Chest Wall Pain ([facility]), Upper Respiratory Illness ([facility]) Prescriptions: Benzonatate [Tessalon Perles 100 mg Capsule] 100 mg PO Q8HP PRN #40 capsule PRN Reason: Naproxen 500 mg PO BID PRN #14 tablet PRN Reason: Forms: Smoking Cessation Education Referrals: JAJA HAWK PA [Primary Care Provider] - Follow up as needed
--- NOTE | 2019-07-20 09:07 | EKG REPORT ---
SEVERITY:- NORMAL ECG - SINUS RHYTHM : Confirmed by: Govind Pickett MD 20-Jul-2019 09:06:43
[2019-07-20 09:54] VITALS: BP 117/81
== END 2019-07-20 10:00 | disposition home or self-care (01) ==
LOC: ER 04:07
DX: M94.0 Chondrocostal junction syndrome [Tietze] (principal); J06.9 Acute upper respiratory infection, unspecified; R07.89 Other chest pain; R05 Cough; R09.82 Postnasal drip; R09.89 Other specified symptoms and signs involving the circulatory and respiratory systems; R42 Dizziness and giddiness; R06.02 Shortness of breath; R09.81 Nasal congestion; F17.200 Nicotine dependence, unspecified, uncomplicated; I10 Essential (primary) hypertension; E11.9 Type 2 diabetes mellitus without complications
CPT/HCPCS: 93005; 99285; 96360; 96361; 36415; 82553; 82550; 85025; 85610; 80053; 84484; 71046; 93010; J7030

== ENCOUNTER 2020-03-26 15:01 | Emergency (ER) | payer MEDICAID ==
[2020-03-26 16:16] LABS: ABSOLUTE EOSINOPHILS # (AUTO) 0.1 10^3/uL (0.0-0.6); ABSOLUTE MONOCYTES (AUTO) 1.1 10^3/uL (0.1-1.4); ABSOLUTE NEUT (AUTO) 9.6 10^3/uL (1.7-8.2); BASOPHILS % (AUTO) 0.2 % (0-2); EOSINOPHILS % (AUTO) 0.7 % (0-6); HEMATOCRIT 43.9 % (37.9-51.0); HEMOGLOBIN 15.1 g/dL (13.5-17.0); LYMPHOCYTES % (AUTO) 26.8 % (13-45); MEAN CORPUSCULAR HGB CONC 34.5 g/dL (32.0-36.0); MEAN CORPUSCULAR VOLUME 96 fl (80-97); MONOCYTES % (AUTO) 7.2 % (3-13); PLATELET COUNT 216 10^3/uL (150-450); RED BLOOD COUNT 4.58 10^6/uL (4.35-5.55); RED CELL DISTRIBUTION WIDTH 13.7 % (11.5-14.0); SEGMENTED NEUTROPHILS % (AUTO) 65.1 % (42-78); TOTAL CELLS COUNTED % (AUTO) 100 %; WHITE BLOOD COUNT 14.8 10^3/uL (4.0-10.5)
[2020-03-26] MEDS ORDERED: ACETAMINOPHEN 325 MG TABLET PO ONE (16:26)
[2020-03-26 16:34] LABS: ALBUMIN 4.2 g/dL (3.5-5.0); ALKALINE PHOSPHATASE 58 U/L (38-126); ANION GAP 9 (5-19); ASPARTATE AMINO TRANSFERASE 89 U/L (17-59); BILIRUBIN,TOTAL 0.5 mg/dL (0.2-1.3); BLOOD UREA NITROGEN 24 mg/dL (7-20); CALCIUM 9.8 mg/dL (8.4-10.2); CARBON DIOXIDE 23 mmol/L (22-30); CHLORIDE 105 mmol/L (98-107); GLUCOSE 101 mg/dL (75-110); POTASSIUM 4.7 mmol/L (3.6-5.0); TOTAL PROTEIN 6.9 g/dL (6.3-8.2)
--- NOTE | 2020-03-26 16:40 | RADIOLOGY REPORT (SQ) ---
EXAM DESCRIPTION: CHEST SINGLE VIEW IMAGES COMPLETED DATE/TIME: 03/26/2020 4:32 pm REASON FOR STUDY: sob COMPARISON: 07/20/2019. EXAM PARAMETERS: NUMBER OF VIEWS: One view. TECHNIQUE: Single frontal radiographic view of the chest acquired. RADIATION DOSE: NA LIMITATIONS: None. FINDINGS: LUNGS AND PLEURA: No opacities, masses or pneumothorax. No pleural effusion. MEDIASTINUM AND HILAR STRUCTURES: No masses. Contour normal. HEART AND VASCULAR STRUCTURES: Heart normal in size. Normal vasculature. BONES: No acute findings. HARDWARE: None in the chest. OTHER: No other significant finding. IMPRESSION: NO ACUTE RADIOGRAPHIC FINDING IN THE CHEST. TECHNICAL DOCUMENTATION: JOB ID: [id number] 2010 [employer]- All Rights Reserved Reading location - IP/workstation name: [email or web address]
[2020-03-26] MEDS ORDERED: NORMAL SALINE 1000 ML 1,000 ML IV ONE ×2 (18:16)
--- NOTE | 2020-03-26 18:23 | ER Document Report ---
ED General - General Chief Complaint: General Weakness Stated Complaint: DIZZINESS Time Seen by Provider: 03/26/20 17:54 Primary Care Provider: JAJA HAWK PA [Primary Care Provider] - Follow up as needed TRAVEL OUTSIDE OF THE [place] IN LAST 30 DAYS: No - HPI Notes: Patient is a 49-year-old male with a history of hypertension, hyperlipidemia, diabetes, who presents to the emergency department for evaluation of weakness, dizziness, leg cramps, cough, diarrhea. Symptoms have been going on for the last several days. He denies any vertiginous symptoms, but states that at times he sees 2 or 3 of things, just feels lightheaded He denies any nausea or vomiting. He states he has been eating and drinking normally. No recent changes in his medications. He has had one episode of diarrhea. He had a minimal cough. He is had some cold sweats, but denies any norberto fevers. He denies any shortness of breath. Other than generalized body cramping, he denies any pain. - Related Data Allergies/Adverse Reactions: No Known Allergies Allergy (Verified 12/09/18 02:34) Home Medications: Atorvastatin, lisinopril, metformin Past Medical History - General Information source: Patient - Social History Smoking Status: Current Every Day Smoker Chew tobacco use (# tins/day): No Frequency of alcohol use: Occasional Drug Abuse: None Family History: Reviewed & Not Pertinent Patient has homicidal ideation: No - Past Medical History Cardiac Medical History: Reports: Hx Hypercholesterolemia, Hx Hypertension Endocrine Medical History: Reports: Hx Diabetes Mellitus Type 2 Renal/ Medical History: Denies: Hx Peritoneal Dialysis Past Surgical History: Reports: Hx Appendectomy, Hx Orthopedic Surgery - Bilateral TKA - Immunizations Immunizations up to date: No Hx Diphtheria, Pertussis, Tetanus Vaccination: Yes Review of Systems - Review of Systems Constitutional: See HPI Respiratory: See HPI Gastrointestinal: See HPI Musculoskeletal: See HPI -: Yes All other systems reviewed and negative Physical Exam - Vital signs Vitals: Pulse Ox 99 03/26/20 15:01 - Notes Notes: This is an obese 49-year-old male who appears stated age, in no acute distress. Vital signs reviewed, please refer to chart. Head is normocephalic, atraumatic. Pupils equal round, reactive to light. External auditory canals are impacted with cerumen, TMs not visualized. Neck is supple without meningismus. Heart is regular rate and rhythm. Lungs are clear to auscultation bilaterally. Abdomen is soft, nontender, normoactive bowel sounds throughout. Extremities without cyanosis, clubbing. Posterior calves are nontender. Peripheral pulses are equal. Skin is warm and dry. Patient is awake, alert, oriented x3. Cranial nerves II - XII are grossly intact without focal neurological deficits. Strength is plus 5 out of 5 bilateral upper and lower extremities. Sensation is intact. Reflexes symmetrical. Intact iysluo-wsri-xaqeqh, rapid alternating movements, ybdd-sy-trzu. Course - Re-evaluation Re-evalutation: 03/26/20 18:22 Patient presents to the emergency department for evaluation. He was found to be hypotensive by EMS. He was given IV fluids. IV fluids were continued here. Laboratory investigations were ordered. Patient denies any pain at this moment, still awaiting remainder of labs to be obtained. He is stable at this time, we will continue to monitor. 03/26/20 19:24 Patient is feeling somewhat improved. He received IV fluids from EMS, was given 2 more liters here. He is feeling improved. My strong suspicion is that the most of his symptoms are secondary to dehydration, but I cannot rule out coronavirus as an etiology. If this is, it is early, and/or mild. He is not hypoxic. His vital signs are improved. He is not hypotensive. We will recheck his metabolic panel. If his creatinine is improved, as I suspect, we will discharge him home. He is to follow closely with primary care, return to the ED with worsening or new concerning symptoms of any sort. 03/26/20 20:42 Patient's laboratory investigations have improved after IV fluids, but his creatinine is still not back to baseline. The patient himself feels markedly improved. No further cramping. He has been normotensive. He has a COVID test pending. I explained to him that he should quarantine at home until results are back. He voiced understanding. Otherwise I will give him a lab slip to have his basic metabolic panel rechecked on Monday, results to Gypsy Velarde, his nurse practitioner. He voiced understanding to the plan, and understands that he needs to return to the emergency department with worsening or new concerning symptoms of any sort. - Vital Signs Vital signs: Temp Pulse Resp BP Pulse Ox 98.4 F 104 H 20 128/85 H 95 03/26/20 19:16 03/26/20 15:15 03/26/20 19:16 03/26/20 19:16 03/26/20 19:16 - Laboratory Result Diagrams: 03/26/20 16:03 03/26/20 19:56 Laboratory results interpreted by me: 03/26/20 03/26/20 03/26/20 16:03 16:03 16:03 WBC 14.8 H Absolute Neuts (auto) 9.6 H Sodium 136.5 L Chloride Carbon Dioxide BUN 24 H Creatinine 2.17 H Est GFR ( Amer) 39 L Est GFR (MDRD) Non-Af 32 L Lactic Acid 2.3 H Calcium AST 89 H ALT 53 H Urine Protein Urine Ketones Urine Bilirubin Urine Urobilinogen Ur Leukocyte Esterase 03/26/20 03/26/20 18:10 19:56 WBC Absolute Neuts (auto) Sodium Chloride 109 H Carbon Dioxide 21 L BUN 23 H Creatinine 1.90 H Est GFR ( Amer) 46 L Est GFR (MDRD) Non-Af 38 L Lactic Acid Calcium 8.0 L AST ALT Urine Protein >=500 H Urine Ketones TRACE H Urine Bilirubin SMALL H Urine Urobilinogen 2.0 H Ur Leukocyte Esterase TRACE H - Diagnostic Test Radiology reviewed: Reports reviewed Radiology results interpreted by me: 03/26/20 18:23 Chest X-Ray 03/26/20 15:47 IMPRESSION: NO ACUTE RADIOGRAPHIC FINDING IN THE CHEST. - EKG Interpretation by Me Additional EKG results interpreted by me: 03/26/20 18:23 Sinus tachycardia with a rate of 102 bpm. Normal axis and intervals. No acute ST changes concerning for ischemia or infarction. Discharge - Discharge Clinical Impression: Leg cramps, Abnormal renal function, Cough, Diarrhea Condition: Stable Disposition: HOME, SELF-CARE Instructions: Kidney Function Abnormality ([facility]), Viral Syndrome ([facility]) Additional Instructions: You are mildly dehydrated today, you were given IV fluids. Your kidney function is not back to normal. Your creatinine was 1.9 at last check, this should be followed up by your primary care provider. Please have your labs drawn on Monday. You are also being tested for COVID-19. Please self quarantine until your contacted with results. If you develop fever, difficulty breathing, or any other new or concerning symptoms, please return immediately to the emergency department for reevaluation. Forms: Follow-Up Laboratory Testing, Return to Work Referrals: JAJA HAWK PA [Primary Care Provider] - Follow up as needed
[2020-03-26 18:42] LABS: APPEARANCE,URINE CLOUDY; BILIRUBIN,URINE SMALL (NEGATIVE); GLUCOSE, URINE NEGATIVE (NEGATIVE); KETONES,URINE TRACE mg/dL (NEGATIVE); LEUKOCYTE ESTERASE,URINE TRACE (NEGATIVE); NITRITE,URINE NEGATIVE (NEGATIVE); PROTEIN,URINE >=500 mg/dL (NEGATIVE); URINE SPECIFIC GRAVITY 1.024
[2020-03-26 18:42] LABS: INTERNATIONAL RATION (INR) 1.04; PROTHROMBIN TIME 13.6 SEC (11.4-15.4)
[2020-03-26 18:43] LABS: COLOR,URINE YELLOW
--- NOTE | 2020-03-26 19:01 | EKG REPORT ---
SEVERITY:- OTHERWISE NORMAL ECG - SINUS TACHYCARDIA : Confirmed by: Govind Pickett MD 26-Mar-2020 19:00:57
[2020-03-26 20:25] LABS: ANION GAP 7 (5-19); BLOOD UREA NITROGEN 23 mg/dL (7-20); CARBON DIOXIDE 21 mmol/L (22-30); CHLORIDE 109 mmol/L (98-107); GLUCOSE 88 mg/dL (75-110)
[2020-03-26 20:30] LABS: POTASSIUM 3.7 mmol/L (3.6-5.0)
[2020-03-26 21:08] VITALS: BP 143/101
== END 2020-03-26 21:08 | disposition home or self-care (01) ==
LOC: ER 15:01
DX: R25.2 Cramp and spasm (principal); R94.4 Abnormal results of kidney function studies; R05 Cough; R19.7 Diarrhea, unspecified; R53.1 Weakness; Z20.828 Contact with and (suspected) exposure to other viral communicable diseases; R42 Dizziness and giddiness; F17.200 Nicotine dependence, unspecified, uncomplicated; I10 Essential (primary) hypertension; E78.5 Hyperlipidemia, unspecified; E11.9 Type 2 diabetes mellitus without complications; Z79.84 Long term (current) use of oral hypoglycemic drugs
CPT/HCPCS: 93005; 99285; 96360; 96361; 36415; 87040; 87086; 83605; 83735; 85025; 85610; 87635; 80053; 81001; 84484; 71045; 93010; J3490; J7030; C9803

== ENCOUNTER 2020-05-25 16:15 | Emergency (ER) | payer OTHER, MEDICAID ==
[2020-05-25] MEDS ORDERED: EPINEPHRINE INJ/PF 1 MG/1 ML AMPULE ONE (16:20)
[2020-05-25] MEDS ORDERED: METHYLPREDNISOLONE INJ 125 MG/2 ML SDV ONE (16:22)
[2020-05-25] MEDS ORDERED: DIPHENHYDRAMINE HCL 50 MG/ML VIAL ONE (16:22)
[2020-05-25] MEDS ORDERED: FAMOTIDINE INJ/PF 20 MG/2 ML SDV IV ONE ×2 (16:22→16:34)
[2020-05-25] MEDS ORDERED: NORMAL SALINE 250 ML IV PRN ×2 (16:28)
[2020-05-25] MEDS ORDERED: DIPHENHYDRAMINE HCL 50 MG/ML VIAL IV ONE (16:34)
[2020-05-25] MEDS ORDERED: METHYLPREDNISOLONE INJ 125 MG/2 ML SDV IV ONE (16:34)
[2020-05-25] MEDS ORDERED: EPINEPHRINE INJ/PF 1 MG/1 ML AMPULE IM ONE (16:35)
--- NOTE | 2020-05-25 16:56 | ER Document Report ---
ED Allergic Reaction - General Chief Complaint: Allergic Reaction Stated Complaint: FACIAL SWELLING/ALLERGIC REACTION Time Seen by Provider: 05/25/20 16:27 Primary Care Provider: JAJA HAWK PA [PHYSICIAN [employer] DRIVER] - Follow up as needed Mode of Arrival: Ambulatory Information source: Patient TRAVEL OUTSIDE OF THE [place] IN LAST 30 DAYS: No - HPI Notes: Patient presents with a complaint of tongue and lip swelling. He states that it started suddenly rival. He states he does take an LUZ inhibitor. He states he has never had this before. He denies any shortness of breath. He states he does have "a little bit" of trouble swallowing. He has had no cough or congestion. The symptoms appear moderate at this time. Nothing is made them better or worse. They have been constant. There is no radiation of the symptoms. He has had no fevers. - Related Data Allergies/Adverse Reactions: No Known Allergies Allergy (Verified 12/09/18 02:34) Past Medical History - General Information source: Patient - Social History Smoking Status: Former Smoker Frequency of alcohol use: None Drug Abuse: None Family History: Reviewed & Not Pertinent Patient has homicidal ideation: No - Past Medical History Cardiac Medical History: Reports: Hx Hypercholesterolemia, Hx Hypertension Endocrine Medical History: Reports: Hx Diabetes Mellitus Type 2 Renal/ Medical History: Denies: Hx Peritoneal Dialysis Past Surgical History: Reports: Hx Appendectomy, Hx Orthopedic Surgery - Bilateral TKA - Immunizations Immunizations up to date: No Hx Diphtheria, Pertussis, Tetanus Vaccination: Yes Review of Systems - Review of Systems Constitutional: denies: Chills, Fever Cardiovascular: denies: Chest pain, Palpitations Respiratory: denies: Cough, Short of breath -: Yes All other systems reviewed and negative Physical Exam - Vital signs Vitals: Pulse Ox 96 05/25/20 16:21 Interpretation: Normal - General General appearance: Appears well, Alert - HEENT Head: Normocephalic, Atraumatic Eyes: Normal Pupils: PERRL Mouth/Lips: Angioedema - Patient has significant angioedema of the lower lip slightly worse to the left of midline. The tongue has some very mild early bilateral angioedema. However with a tongue depressor I am able to visualize the entire posterior pharynx. Mucous membranes: Moist Pharynx: Uvular edema, Other - There is some minimal angioedema of the posterior pharynx and also of the uvula. Neck: Normal - Respiratory Respiratory status: No respiratory distress Chest status: Nontender Breath sounds: Normal Chest palpation: Normal - Cardiovascular Rhythm: Regular Heart sounds: Normal auscultation Murmur: No - Abdominal Inspection: Normal Distension: No distension Bowel sounds: Normal Tenderness: Nontender Organomegaly: No organomegaly - Back Back: Normal, Nontender - Extremities General upper extremity: Normal inspection, Nontender, Normal color, Normal ROM, Normal temperature General lower extremity: Normal inspection, Nontender, Normal color, Normal ROM, Normal temperature, Normal weight bearing. No: Anitha's sign - Neurological Neuro grossly intact: Yes Cognition: Normal Orientation: AAOx4 [place] Coma Scale Eye Opening: Spontaneous [place] Coma Scale Verbal: Oriented [place] Coma Scale Motor: Obeys Commands [place] Coma Scale Total: 15 Speech: Normal Motor strength normal: LUE, RUE, LLE, RLE Sensory: Normal - Psychological Associated symptoms: Normal affect, Normal mood - Skin Skin Temperature: Warm Skin Moisture: Dry Skin Color: Normal Course - Re-evaluation Re-evalutation: 05/25/20 18:44 Patient arrived with significant angioedema of the lip as well as some angioedema of the tongue posterior pharynx and uvula. After treatment with epinephrine Solu-Medrol and Benadryl patient had significant relief of symptoms. FFP and Berinert were not needed. At this time patient states he feels much better. Patient will be observed for another hour and a half approximately and then Dr. Reeves will reexamine the patient determine if he is stable for discharge. Patient has been educated not to take anymore LUZ inhibitor. - Vital Signs Vital signs: Temp Pulse Resp BP Pulse Ox 112 H 25 H 103/82 98 05/25/20 16:29 05/25/20 16:29 05/25/20 17:02 05/25/20 17:02 Discharge - Discharge Clinical Impression: Angioedema Qualifiers: Encounter type: initial encounter Qualified Code(s): T78.3XXA - Angioneurotic edema, initial encounter Condition: Stable Disposition: HOME, SELF-CARE Instructions: Angioedema (OM) Additional Instructions: Do not take lisinopril anymore Call your family doctor first thing in the morning to tell him you had a reaction to lisinopril. Tell him this reaction included swelling of your lips and tongue. Tell him you need a new blood pressure medication. Forms: Return to Work Referrals: JAJA HAWK PA [PHYSICIAN [employer] DRIVER] - Follow up tomorrow
[2020-05-25] MEDS ORDERED: DISPOSABLE IV ONE (18:00)
[2020-05-25] MEDS ORDERED: C1 ESTERASE INHIBITOR IV ONE (18:00)
[2020-05-25 20:19] VITALS: BP 118/85
== END 2020-05-25 20:20 | disposition home or self-care (01) ==
LOC: ER 16:15
DX: T78.3XXA Angioneurotic edema, initial encounter (principal); X58.XXXA Exposure to other specified factors, initial encounter; E78.00 Pure hypercholesterolemia, unspecified; I10 Essential (primary) hypertension; E11.9 Type 2 diabetes mellitus without complications
CPT/HCPCS: 99283; 96372; 96374; 96375; 86900; 86901; 36415; J1200; J0171; J2930; S0028